=== PATIENT | female | born 1950 | race Caucasian/White ===

== ENCOUNTER → 2018-01-25 14:15 | Outpatient (CLI) | payer OTHER, MEDICARE, SELFPAY | PROVIDERS: PCP Surgery Vascular Surgery; Visit Provider Student in an Organized Health Care Education/Training Program | DX: M20.41 Other hammer toe(s) (acquired), right foot (principal) | CPT/HCPCS: 20600; 99213; J1030 ==

== ENCOUNTER 2019-01-12 10:52 | Outpatient (CLI) | payer MEDICARE, BC, SELFPAY ==
--- NOTE | 2019-01-12 10:12 | DI.RAD_ITS ---
SYMPTOM/DIAGNOSIS: LEFT 5TH TOE PAIN LEFT FOOT: 01/12 Three views were obtained. On AP view there is question of fracture deformity of the base of the proximal phalanx of the 5th toe. I cannot confirm a fracture on the other views however. Apart from mild degenerative changes. No other significant bony abnormality seen. CONCLUSION: Question nondisplaced fracture base of proximal phalanx of the 5th toe. Please correlate clinically.
== END 2019-01-12 11:12 ==
PROVIDERS: PCP Surgery Vascular Surgery; Referring Provider Surgery Vascular Surgery; Visit Provider Student in an Organized Health Care Education/Training Program
DX: S90.122A Contusion of left lesser toe(s) without damage to nail, initial encounter (principal); M79.675 Pain in left toe(s); I10 Essential (primary) hypertension; W22.8XXA Striking against or struck by other objects, initial encounter
CPT/HCPCS: 99214; 73630

== ENCOUNTER 2019-02-26 13:40 | Outpatient (CLI) | payer MEDICARE, BC, SELFPAY ==
--- NOTE | 2019-02-26 13:26 | DI.RAD_ITS ---
EXAM: XR KNEE LT 3V AP,LAT,SHANDA CLINICAL HISTORY: Left Knee Pain. TECHNIQUE: 2D digital imaging was performed. COMPARISON: LEFT KNEE COMPLETE W SUNRISE from 08/01/2008 FINDINGS: BONES: No acute fracture is present. There is marked narrowing in the medial femoral tibial joint sp monik. There is also marked narrowing of the patellofemoral joint. There are osteophytes at all 3 carlitos nt compartments. There is chondrocalcinosis present within the femoral tibial joint. JOINTS: The knee is normally aligned. There is a small suprapatellar joint effusion. SOFT TISSUE: Normal. IMPRESSION: Advanced degenerative changes of the left knee.
== END 2019-02-26 14:00 ==
PROVIDERS: PCP Surgery Vascular Surgery; Referring Provider Surgery Vascular Surgery; Visit Provider Student in an Organized Health Care Education/Training Program
DX: M25.562 Pain in left knee (principal); M17.12 Unilateral primary osteoarthritis, left knee; Z98.890 Other specified postprocedural states
CPT/HCPCS: 73562; 99214

== ENCOUNTER 2020-06-02 14:33 | Outpatient (CLI) | payer MEDICARE, BC, SELFPAY ==
--- NOTE | 2020-06-02 14:00 | DI.RAD_ITS ---
EXAM: XR STANDING ALIGNMENT CLINICAL HISTORY: preop. TECHNIQUE: 2D digital imaging was performed. COMPARISON: No exams were available for comparison FINDINGS: There is fusion hardware in the lumbar spine. There is a degenerative subarticular cyst in the later al aspect of the right femoral head. However, there is no prominent joint space narrowing in the hip s evident. There are advanced degenerative narrowing changes in the medial compartment of the left k nee and chondrocalcinosis in the lateral compartment. Moderate degenerative changes noted in the opp osite-right knee with less narrowing. Mild degenerative changes in the ankles. Talar dome on the ri ght side exhibits possible degenerative cyst on its lateral aspect. No osseous lesions. IMPRESSION: Advanced osteoarthritic degenerative changes in the left knee. Moderate in the right knee. DATA REPOSITORY: RADIATION DOSE DELIVERED:
--- NOTE | 2020-06-02 14:00 | DI.RAD_ITS ---
EXAM: XR KNEE LT 1V CLINICAL HISTORY: preoperative. TECHNIQUE: 2D digital imaging was performed. COMPARISON: CR XR KNEE LT 3V AP,LAT,SHANDA from 02/26/2019 FINDINGS: Cross-table lateral view of the left knee reveals advanced tricompartmental degenerative changes. Th is view also reveal significant involvement of the patellofemoral compartment. The AP weight-bearing view reveals [id number] apposition of the medial compartment and marginal osteophytes. There is n o narrowing of the lateral compartment but there are degenerative changes including chondrocalcinosis . There is a small joint effusion. No osseous lesions. IMPRESSION: DATA REPOSITORY: RADIATION DOSE DELIVERED:
== END 2020-06-02 14:53 ==
PROVIDERS: PCP Surgery Vascular Surgery; Referring Provider Surgery Vascular Surgery; Visit Provider Student in an Organized Health Care Education/Training Program
DX: M17.12 Unilateral primary osteoarthritis, left knee (principal); R06.2 Wheezing; M25.511 Pain in right shoulder; Z01.818 Encounter for other preprocedural examination
CPT/HCPCS: 20610; 99215; 73560; 77073; J1030

== ENCOUNTER 2020-06-05 00:52 | Outpatient (CLI) | payer MEDICARE, BC, SELFPAY ==
--- NOTE | 2020-06-05 08:45 | DI.RAD_ITS ---
EXAM: XR CHEST 2V PA LATERAL CLINICAL HISTORY: EXPIRATORY WHEEZING ON L SIDE OF CHEST, PREOP,R06.2. TECHNIQUE: 2D digital imaging was performed. COMPARISON: No exams were available for comparison FINDINGS: Heart size is normal. The mediastinum is not widened. Lungs are clear. No infiltrates nor pleural effusions. IMPRESSION: No acute pulmonary findings.Incidentally noted is fusion hardware in the lumbar spine. DATA REPOSITORY: RADIATION DOSE DELIVERED:
== END 2020-06-05 01:12 ==
PROVIDERS: PCP Surgery Vascular Surgery; Visit Provider Student in an Organized Health Care Education/Training Program
DX: R06.02 Shortness of breath (principal); R06.2 Wheezing
CPT/HCPCS: 71046

== ENCOUNTER 2020-06-13 02:12 | Outpatient (CLI) | payer MEDICARE, BC, SELFPAY ==
[2020-06-13 10:37] LABS: HCT 40.3 % (36.0-46.0); HGB 13.4 g/dL (11.2-15.7); MCH 29.3 pg (27.0-33.0); MCHC 33.3 % (32.0-36.0); MCV 88.2 fL (80-95); MPV 9.9 fL (8.0-11.0); Platelet Count 244 10^3/uL (130-400); RBC 4.57 10^6/uL (3.93-5.22); RDW 13.5 % (11.7-14.6); RDW-SD 43.5 fL; WBC 7.29 10^3/uL (4.4-10.8)
[2020-06-13 11:19] LABS: Anion Gap 6.2 mmol/L (3-11); BUN 10 mg/dL (7-18); CO2 29.8 mmol/L (21.0-32.0); CREATININE 0.88 mg/dL (0.55-1.02); Calcium 9.3 mg/dL (8.5-10.1); Chloride 99 mmol/L (98-107); Glucose 91 mg/dL (74-106); Potassium 3.8 mmol/L (3.5-5.1); Sodium 135 mmol/L (136-145)
[2020-06-14 16:38] LABS: COVID-19 RT-PCR Result NEGATIVE (Negative)
== END 2020-06-13 02:32 ==
PROVIDERS: PCP Internal Medicine; Visit Provider Student in an Organized Health Care Education/Training Program
DX: M25.562 Pain in left knee (principal); M17.12 Unilateral primary osteoarthritis, left knee; Z11.52 Encounter for screening for COVID-19; Z01.818 Encounter for other preprocedural examination; Z01.812 Encounter for preprocedural laboratory examination
CPT/HCPCS: 36415; 80048; 85027; U0003

== ENCOUNTER 2020-06-17 07:31 | Day surgery (SDC) | payer MEDICARE, BC, SELFPAY ==
[2020-06-17] VITALS (8 sets, daily range): BP systolic 99–125; BP diastolic 62–90; PULSE 48–65; RESP 12–20; TEMP 36.1–36.7; O2SAT 94–97
--- NOTE | 2020-06-17 08:06 | W.PM.DS.N ---
Documented by User: Enriqueta Maysxon 06/17/20 09:45 DS: Diagnosis Discharge Diagnosis (1) Localized osteoarthritis of left knee: Status: Acute Discharge Plan Disposition Patient Disposition: HOME Condition: Good Discharge Details Reason For Visit: Left knee DJD Attending Provider: Olaf Reyez Primary Care Provider: Anjel Vega Home Meds and New Rx's Prescriptions: New celecoxib [Celebrex] 200 mg capsule 200 mg PO BID Qty: 30 RF: 0 aspirin 81 mg tablet,delayed release (DR/EC) 81 mg PO BID 30 Days Qty: 60 RF: 0 acetaminophen 500 mg tablet 500 mg PO Q6H PRN (Reason: pain) Qty: 60 RF: 2 pantoprazole 40 mg tablet,delayed release (DR/EC) 40 mg PO DAILY 30 Days Qty: 30 RF: 0 docusate sodium [Colace] 100 mg capsule 100 mg PO BID Qty: 30 RF: 0 oxycodone 5 mg tablet 5 mg PO Q4H PRN (Reason: severe post-operative pain) Qty: 18 RF: 0 Continued atorvastatin 20 mg tablet 20 mg PO DAILY RF: 0 amlodipine 2.5 MG tablet 2.5 mg PO DAILY RF: 0 hydrochlorothiazide 12.5 MG tablet 12.5 mg PO DAILY RF: 0 Bupropion HCl 100 MG tablet 150 mg PO DAILY RF: 0 Discontinued aspirin 81 MG tablet,chewable 81 mg PO DAILY RF: 0 Discharge Instructions Additional Instructions: Total Knee Discharge Instructions Activity: The most important activity is to walk. You should try to take short walks a few times a day. It is important that when resting you work on keeping the knee straight. Avoid putting a pillow behind the knee as this will encourage flexion. Work on range of motion exercises as provided by Physical Therapy. - Start outpatient physical therapy within 2 weeks. - You should wear the JORDYN hose on both legs for 2 weeks. Dressing: Keep the surgical dressing in place for at least one week. After the first week it may be removed and replace with light gauze and tape or nothing. It may get wet after 3 days but avoid soaking the dressing. If it gets wet, just lightly pat dry. Medications: - You should take Tylenol and anti-inflammatory Celebrex as your primary pain control medications. If the Celebrex is too expensive or not covered, please call the office for another alternative (Advil/Ibuprofen or Naproxen/Aleve) - You have been prescribed a stronger pain medication Oxycodone for breakthrough pain, take as needed as prescribed. - You have also been prescribed a stomach acid reduction agent Pantoprozole to help reduce stomach acid and reflux. - You will be taking Aspirin 81mg twice a day for DVT prevention unless instructed otherwise. - If you have constipation you should take Colace (which was prescribed) or Miralax (which you may purchase [id number]). It takes most people 3-4 days to have a bowel movement. Follow-up: 2 weeks If you have any acute concerns or questions, please do not hesitate to contact the office at [phone]. You may contact Dr. Reyez with any questions after hours through the hospital at [phone] or on his cell phone at [phone]. Referrals: Olaf Reyez MD [ [facility] STAFF PHYSICIAN] - Equipment/Supplies: Walker Activity:: Elevate Remove Dressings/Wound Care:: Do Not Remove Shower/Bathe:: 72 hours Diet:: As Tolerated Discharge Orders Discharge Orders: Discharge Order (Routine); Ordered 06/17/20 Ordered By: Olaf Reyez DS: Data Vitals/I&O Vitals and I&O: Intake & Output 06/16/20 06/16/20 06/17/20 11:59 23:59 11:59 Weight 69.853 kg [facility] Medical History Depression Hammertoe of right foot (12/21/17) History of DVT of lower extremity left leg Hypertension Metatarsalgia of right foot (12/21/17) Surgical History History of lumbar spinal fusion 2018 Hx of breast lump removal Hx of cholecystectomy Hx of parathyroidectomy Social History Smoking/Tobacco Use Status: Never Smoking risk assessment performed?: Yes Alcohol Intake: never Drug use: Occasionally Substance use type: marijuana Details: edible thc - 11 days ago approx Current gender identity: female Do you feel safe at home: Yes Do you feel safe in your relationship?: Yes Documented by User: Olaf Reyez MD 06/17/20 13:41 Date of service: 06/17/20 Time of Service: 13:40 Discharge Plan Disposition Patient Disposition: HOME Condition: Good Discharge Details Reason For Visit: Left knee DJD Attending Provider: Olaf Reyez Primary Care Provider: Anjel Vega Home Meds and New Rx's Prescriptions: New celecoxib [Celebrex] 200 mg capsule 200 mg PO BID Qty: 30 RF: 0 aspirin 81 mg tablet,delayed release (DR/EC) 81 mg PO BID 30 Days Qty: 60 RF: 0 acetaminophen 500 mg tablet 500 mg PO Q6H PRN (Reason: pain) Qty: 60 RF: 2 pantoprazole 40 mg tablet,delayed release (DR/EC) 40 mg PO DAILY 30 Days Qty: 30 RF: 0 docusate sodium [Colace] 100 mg capsule 100 mg PO BID Qty: 30 RF: 0 oxycodone 5 mg tablet 5 mg PO Q4H PRN (Reason: severe post-operative pain) Qty: 18 RF: 0 Continued atorvastatin 20 mg tablet 20 mg PO DAILY RF: 0 amlodipine 2.5 MG tablet 2.5 mg PO DAILY RF: 0 hydrochlorothiazide 12.5 MG tablet 12.5 mg PO DAILY RF: 0 Bupropion HCl 100 MG tablet 150 mg PO DAILY RF: 0 Discontinued aspirin 81 MG tablet,chewable 81 mg PO DAILY RF: 0 Discharge Instructions Additional Instructions: Total Knee Discharge Instructions Activity: The most important activity is to walk. You should try to take short walks a few times a day. It is important that when resting you work on keeping the knee straight. Avoid putting a pillow behind the knee as this will encourage flexion. Work on range of motion exercises as provided by Physical Therapy. - Start outpatient physical therapy within 2 weeks. - You should wear the JORDYN hose on both legs for 2 weeks. Dressing: Keep the surgical dressing in place for at least one week. After the first week it may be removed and replace with light gauze and tape or nothing. It may get wet after 3 days but avoid soaking the dressing. If it gets wet, just lightly pat dry. Medications: - You should take Tylenol and anti-inflammatory Celebrex as your primary pain control medications. If the Celebrex is too expensive or not covered, please call the office for another alternative (Advil/Ibuprofen or Naproxen/Aleve) - You have been prescribed a stronger pain medication Oxycodone for breakthrough pain, take as needed as prescribed. - You have also been prescribed a stomach acid reduction agent Pantoprozole to help reduce stomach acid and reflux. - You will be taking Aspirin 81mg twice a day for DVT prevention unless instructed otherwise. - If you have constipation you should take Colace (which was prescribed) or Miralax (which you may purchase [id number]). It takes most people 3-4 days to have a bowel movement. Follow-up: 2 weeks If you have any acute concerns or questions, please do not hesitate to contact the office at [phone]. You may contact Dr. Reyez with any questions after hours through the hospital at [phone] or on his cell phone at [phone]. Referrals: Olaf Reyez MD [ [facility] STAFF PHYSICIAN] - Equipment/Supplies: Walker Activity:: Elevate Remove Dressings/Wound Care:: Do Not Remove Shower/Bathe:: 72 hours Diet:: As Tolerated Discharge Orders Discharge Orders: Discharge Order (Routine); Ordered 06/17/20 Ordered By: Olaf Reyez DS: Summary Status at Discharge Functional status at discharge: uses cane/walker Overall status at discharge: patient is progressing back to baseline Mental Status: mental status grossly normal Speech and Movement: speech and movement normal Mood: congruent mood Affect: normal affect Exam Psych Mental Status: mental status grossly normal Speech and Movement: speech and movement normal Mood: congruent mood Affect: normal affect [facility] Medical History Depression Hammertoe of right foot (12/21/17) History of DVT of lower extremity left leg Hypertension Metatarsalgia of right foot (12/21/17) Surgical History History of lumbar spinal fusion 2018 Hx of breast lump removal Hx of cholecystectomy Hx of parathyroidectomy Social History Smoking/Tobacco Use Status: Never Smoking risk assessment performed?: Yes Alcohol Intake: never Drug use: Occasionally Substance use type: marijuana Details: edible thc - 11 days ago approx Current gender identity: female Do you feel safe at home: Yes Do you feel safe in your relationship?: Yes
[2020-06-17] MEDS: Lactated Ringers 1,000 ML 30 ML IV (08:32)
[2020-06-17] MEDS: Celecoxib 200 MG CAP 400 MG PO (08:47)
[2020-06-17] MEDS: Acetaminophen 500 MG TAB 1000 MG PO (08:47)
[2020-06-17] MEDS: Gabapentin 300 MG CAP PO (08:47)
[2020-06-17] MEDS: Bupivacaine 0.25% Pres-Free 30 ML VIAL (09:48)
[2020-06-17] MEDS: ceFAZolin 2 GM/50 ML BAG IVPB (10:35)
[2020-06-17] MEDS: Lactated Ringers 1,000 ML 100 ML IV (11:15)
[2020-06-17] MEDS: Bupivacaine 0.5% Pres-Free 30 ML VIAL (11:17)
[2020-06-17] MEDS: Normal Saline 20 ML VIAL (11:19)
[2020-06-17] MEDS: Ketorolac 30 MG/ML VIAL (11:19)
--- NOTE | 2020-06-17 14:20 | PT.INIE ---
Date of service: 06/17/20 Time of Service: 14:20 PT Notes Visit Reasons: Left knee DJD Physical Therapy Day Surgery Initial Evaluation Date: 06/17/2020 Referring Doctor: FABIANA Stringer PT Orders: PT CONSULT: Status post Ortho surgery Precautions: WBAT on left LE. Patient Profile/Admitting Diagnosis: Tawny is a 69-year-old female with primary unilateral osteoarthritis of the left knee and is status post left total knee arthroplasty on postoperative day 0. PMHX: Medical History (Updated 06/03/20 @ 15:38 by FABIANA Montes) Depression Hammertoe of right foot (12/21/17) Hypertension Metatarsalgia of right foot (12/21/17) Social History/Home Situation: Lives with significant other Terry in a private home with 7 steps to enter with rails on both sides. Independent with all aspects of ADLs prior to surgery without the need for an assistive ambulatory device nor adaptive equipment. Equipment Owned/DME: [facility] Subjective: Agreeable to PT consult. Is happy to see how much movement she is able to do now without pain. Denies headache, chest pain, and lightheadedness throughout PT session. Objective: General Observation: Seen walking with the Nurse Daina from bathroom to bedside chair using front wheeled walker as patient needed to void urine. Nurse Daina present throughout PT session. Mental Status: Alert and oriented x4 Pain: None reported ROM: Right Upper Extremity: Shoulder Flexion WFL. Shoulder abduction WFL. Elbow flexion WFL. Wrist flexion WFL. Functional opening and closing of hand WFL. Left Upper Extremity: Shoulder Flexion WFL. Shoulder abduction WFL. Elbow flexion WFL. Wrist flexion WFL. Functional opening and closing of hand WFL. Right Lower Extremity: Hip flexion WFL. Hip abduction WFL. Knee flexion WFL. Ankle dorsiflexion WFL. Ankle plantarflexion WFL. Left Lower Extremity: Hip flexion WFL. Hip abduction WFL. Knee flexion 0 to 110 degrees. Knee extension 110 degrees to 0 degrees ankle dorsiflexion WFL. Ankle plantarflexion WFL. Strength: Right Upper Extremity: Shoulder flexors 5/5. Shoulder abductors 5/5. Elbow flexors 5/5. Elbow extensors 5/5. Marketing Information Coordinator strong. Left Upper Extremity: Shoulder flexors 5/5. Shoulder abductors 5/5. Elbow flexors 5/5. Elbow extensors 5/5. Marketing Information Coordinator strong. Right Lower Extremity: Hip flexors 5/5. Hip abductors 5/5. Knee flexors 5/5. Knee extensors 5/5. Ankle dorsiflexors 5/5. Ankle plantarflexors 5/5. Left Lower Extremity: Hip flexors 5/5. Hip abductors 5/5. Knee flexors 4/5. Knee extensors 4/5. Ankle dorsiflexors 5/5. Ankle plantarflexors 5/5. Sensation: Intact as to pain and light pressure in bilateral lower extremities. Bed Mobility/Transfers: Rolling independent Supine to sit independent Sit to supine independent Sit to stand standby assist Stand to sit standby assist Bed to chair standby assist Chair to bed standby assist Gait: Guided patient through level surface ambulation of 200 feet using front wheeled walker with step-to gait pattern requiring only standby assist. Stairs: Instructed patient with safe and correct technique with managing 5 x 6 inch steps while holding onto 1 rail with 1 hand and with hand-held assist of PT with the other hand, contact-guard assist of PT and standby assist of Nurse Daina and Nurse Barnes for safety. Balance: Static Sitting: Normal Dynamic Sitting: Normal Static Standing: Fair Dynamic Standing: Fair Special Tests: Mobility Limitations Standardized Measure [facility] 6 clicks Basic Mobility Inpatient Short Form: Raw Score: 22 CMS Score: 21% deficit Informed Consent/Education: Patient instructed in purpose of PT consult. Packet containing TKA exercise protocol has been given to patient. Education and training on initial set of exercises that can be done at home have been completed with patient. Assessment: Tawny demonstrates the need for a front wheeled walker for all mobility ADL performance in order to maximize independence and reduce fall risk at home. She has good understanding of her exercises and will have the support of her significant other Terry as she recovers. Patient presents with clinical signs and symptoms consistent with current/admitting diagnoses that have resulted to mobility limitations, gait instability, generalized weakness, and impairment of motor control as demonstrated by the following impairment level findings: 1. Decreased strength to left knee major muscle groups 2. Impaired standing balance 3. Limitation of joint range of motion in left knee Impairments are contributing to the following functional limitations: 1. Inability to safely ambulate without assistive device 2. Increase completion time for mobility ADL performance 3. Increased fall risk Patient is assessed as a [id number] moderate complexity based on the following: History: 69-year-old female with impairment level findings, functional limitations, and past medical history as indicated above Examination: Demonstrable impairment in strength, balance, and mobility level with underlying impairments and functional limitations as documented above Presentation: Evolving Decision Makin moderate complexity Goals: N/A. PT evaluation and 1-2 treatment sessions only for functional mobility training using recommended AD and for HEP instruction. Plan of Care/Treatment Plan: N/A. PT evaluation and 1-2 treatment session only for functional mobility training using recommended AD and for HEP instruction. DISCHARGE RECOMMENDATIONS: Home when medically cleared by orthopedic surgeon. Outpatient physical therapy services in order to facilitate safe return to independent community ambulation without assistive device. TREATMENT CODE/TIME: 16014 x 25 minutes, 10272 x 10 minutes, 28248 x 15 minutes beginning at 14:20 PM. Thank you for the opportunity to participate in the care of this patient. Juliana Willett PT, DPT, CLT [facility] [place], [place]
--- NOTE | 2020-06-18 21:13 | W.PM.OP ---
Date of service: 06/17/20 Time of Service: 12:13 Operative Note Operative Note DATE OF PROCEDURE: 06/17/20 PRE-OP DIAGNOSIS: Left Knee Osteoarthritis POST-OP DIAGNOSIS: same PROCEDURE: Left Total Knee Replacement SURGEON: Olaf Reyez PROCESS CONTROL ENGINEER: Enriqueta Noriega ANESTHESIA: regional and spinal PATHOLOGY: none sent TOURNIQUET TIME: 0 COMPLICATIONS: None Patient was transported to: PACU Patient's condition: stable Implants: 1. Depuy Attune Cementless Cruciate Retaining Femoral Component, Size 5 2. Depuy Attune Cementless Rotating Platform Tibial Component, Size 4 3. Depuy Attune 5x6mm CR/RP Poly 4. Depuy Attune Patellar Component, Size 35 Indications: I have seen Tawny in clinic for symptoms of knee arthritis, confirmed with radiographic findings. She has exhausted nonoperative methods and was having significant limitations in daily function and desired better function and less pain. I discussed the technical details of a knee replacement. I explained the risks of the procedure to include, but not limited to, bleeding, infection, pain, stiffness, fracture, damage to nerves and vessels, damage to muscles and tendons, loosening, need for repeat procedure, blood clot and cardiopulmonary demise. Despite these risks, Tawny elected to proceed. Findings: There was significant signs of arthritis throughout the knee. Procedure Description: Tawny was greeted in the preoperative holding area where the correct side was identified and marked. The consent was reviewed with the patient and signed. The history and physical was updated. All questions were answered. Preoperative medications were administered: Acetaminophen 1000mg, Celebrex 400mg, and Gabapentin 300mg. An adductor canal block was then administered by the anesthesia team in the PACU. Tawny was taken back to the operating room. A spinal anesthestic was then administered. The patient was placed into the supine position on the operating room table. A nonsterile tourniquet was placed high onto the leg but only used for cementing. Posts were placed for positioning during the procedure. All bony prominences were well padded. Prophylactic antibiotics in the form of Cefazolin were administered. 1g of Tranxemic Acid was given intravenously within 30 minutes of incision. The left leg was then prepped with Chloraprep and draped in a standard fashion with impervious stockinette. A second prep with Chloraprep was performed prior to application of Iodine impregnated skin protection. A timeout to confirm correct identity, side and site, procedure, allergies, anesthesia, and medical concerns was performed. With the knee in some flexion, a midline incision was made overlying the knee. Full thickness skin flaps were raised once the extensor mechanism was encountered. These were raised medially and laterally. Any bleeding was controlled with electrocautery. Once the extensor mechanism was fully exposed, a medial parapatellar arthrotomy was performed in a flexed position. All bleeding from the arthrotomy and the geniculate arteries was coagulated. A medial subperiosteal peel was performed with electrocautery to the midcoronal plane. The fat pad was removed while keeping the patellar tendon protected. The anterior distal femur synovium was removed for later visualization. The ACL and PCL were resected and the anterior horn of the lateral meniscus was transected. The knee was then flexed with the patella everted. Large osteophytes from the tibia were removed. Large osteophytes from the femur were removed. Using a step drill, and based on preoperative templating, the femoral canal was entered. This was done with a step drill without any difficulty. The intramedullary distal femoral cut guide was inserted, set to a 5 degree valgus cut and 9mm cut thickness. The distal femoral cut guide was then held in position and pinned. With the soft tissues protected, the distal cut was performed. This was passed over a few times to ensure a planar cut. I then turned attention to the tibia. The extramedullary guide was placed onto the leg. The distal aspect was slid medial to adjust for position of center of ankle and stay in line with shaft of the tibia. Approximately 3-5 degrees of posterior slope was kept in the proximal cutting guide. The center of the guide was aligned with the PCL. The stylus was used to assess cut thickness. The medial side, most involved side, was set for a 3mm cut. This was then held in position and pinned into place with 2 additional pins and a cross pin for stability. The medial and lateral collateral ligaments were protected and the cut was performed. With this completed, it was assessed and noted to be of appropriate dimensions. The guide was removed. A spacer block was inserted and the knee was brought into extension. The 6mm spacer block provided full extension, without hyperextension and with stability of both the medial and lateral collateral ligaments was assessed. The pins from the femur and the tibia were then removed. The distal femur was then sized. The anterior stylus was placed onto the lateral ridge of the anterior femur. This indicated a size 5 femur. The external rotation of the guide was adjusted to 3 degrees to match the epicondylar axis, perpendicular to Mingo?s line. The 4-in-1 cutting guide was the placed. The posterior medial femur cut was evaluated and appeared of good thickness. The spacer block was inserted underneath the cutting guide and stability was confirmed in 90 degrees of flexion. An augusto wing was used to confirm appropriate position of the anterior cut to avoid notching. This cutting guide was ensured to be flush on the cut surface and then pinned into place with headed pins. While protecting the soft tissues, quad tendon, and collateral ligaments, the anterior and posterior cuts were performed with a saw. The central two pins were removed and the posterior and anterior chamfers were cut next. The notch-cutting guide was placed. This was pinned to lateralize the femoral component as much as possible while keeping it flush on the cut surface. This was then pinned into position. A reciprocating saw was used to make the notch cut. A rasp smoothed the cut surfaces. The medial and lateral menisci were removed. A trial femoral component was then inserted, impacted down to the cut surfaces, and the lug holes were drilled. A provisional trial tibial component was placed and the knee was brought through range of motion. There was noted to be excellent extension and flexion. There was no significant instability. The patella was tracking without thumbs. A size 6mm polyethylene component provided the best range of motion and stability with less than 2mm gapping with medial and lateral stress and full extension without significant hyperextension. The tibial cut surface was fully exposed. The tibia was then sized as a 4. The tibia had been previously marked during trialing to correspond to the center of the tibial component to help with rotation. The trial was aligned to this jayce, approximately rotated to the medial 1/3rd of the tibial tubercle. The trial was pinned into place. The tibia was prepared with a reamer and a keel punch and lug holes. The knee was then brought into extension and the patella was measured as 25mm. Using the patellar clamp and cut guide, this was resected to a flat surface with at least 13mm of thickness remaining. The size 35 patella fit the best. This was oriented and then clamped into position. The lugs were drilled. The trial components were removed. The final components were opened on the back table. The periosteal and capsular tissues, especially posteriorly, around the knee were then systematically injected with a periarticular cocktail consisting of 50cc 0.25% Marcaine, 30mg Ketorolac, 20cc of Exparal and 50cc of injectable saline. The knee was thoroughly irrigated with a pulse lavage and dried. Irrisept was also used to irrigate the tissues. On the back table, with the implants opened, the cement was mixed. One batche of high viscosity cement were prepared with vacuum assistance. After the cement was ready a small amount was placed on the cut surface of the patella and the patellar button was clamped into position and held. During this process attention was turned to the gutters of the knee and for all interfaces for any excess cement. While the cement was hardening, the cementless knee components were placed. Starting with the tibial component, the tibia was subluxed anteriorly and the lug holes of the component were lined up. The tibia was then impacted with an impactor and mallet until the tibial component was in contact with the tibia. The final polyethylene component was inserted. Then, the femoral component was inserted. The lug holes were aligned and the component was impacted into position. The knee was irrigated with Irrisept chlorhexadine solution. This was allowed to sit in the knee for 3 minutes. After the cement had finally cured, approximately 15min, the clamp was removed from the patella and the knee was taken through range of motion. The patella was tracking with a no-thumbs technique. The capsule was then reapproximated with a No. 1 Vicryl at multiple locations. The capsule was finally closed with a No. 2 Stratafix, barbed suture. The tourniquet was then released and the arthrotomy appeared watertight without significant bleeding. The second dosing of 1g TXA was started. Deep tissues were then reapproximated with 0 Vicryl and 2-0 Vicryl. The skin was closed with a running 3-0 Monocryl in a subcuticular fashion. This was reinforced with skin glue. A Mepilex silver dressing was applied along with a [id number] MILENA wrap. A CryoCuff was applied. Tawny was transferred to the hospital bed without difficulty an suffering no apparent complication. Tawny has a good prognosis. Physical therapy will start today and without restrictions, weight-bearing as tolerated. Aspirin 81mg BID will be used for DVT prophylaxis.
== END 2020-06-17 16:15 | disposition home or self-care (01) ==
PROVIDERS: PCP Internal Medicine; Visit Provider Student in an Organized Health Care Education/Training Program
PROC: (CPT 27447; principal; 2020-06-17 10:15)
DX: M17.12 Unilateral primary osteoarthritis, left knee (principal); M25.562 Pain in left knee; Z96.652 Presence of left artificial knee joint; I10 Essential (primary) hypertension; K21.9 Gastro-esophageal reflux disease without esophagitis
CPT/HCPCS: 27447; C1776; 76942; 97110; 97162; 97530; NC; J0690; J1100; J1885; J2001; J2250; J2405

== ENCOUNTER 2020-06-30 15:21 | Outpatient (CLI) | payer MEDICARE, BC, SELFPAY ==
--- NOTE | 2020-06-30 14:15 | DI.RAD_ITS ---
EXAM: XR STANDING ALIGNMENT and XR knee LT 1 V CLINICAL HISTORY: post op. TECHNIQUE: 2D digital imaging was performed. COMPARISON: CR XR STANDING ALIGNMENT from 06/02/2020 CR XR KNEE LT 1V from 06/02/2020 CR XR KNEE LT 1V from 06/30/2020 FINDINGS: The hips are well maintained. There is a left convex scoliosis of the lumbar spine. Posterior spina l surgery is seen at the lumbosacral junction. Since the prior examination, there has been interval placement of a left total knee replacement. The orthopedic hardware appears in good position. There is soft tissue swelling about the knee. There does appear to be a small joint effusion. Degenerati ve changes are seen in the right knee characterized by joint space narrowing and periarticular spurri ng. The findings are most marked in the medial femoral tibial joint. The ankles are well maintained . No significant leg length discrepancy is noted. IMPRESSION: 1. Since the prior examination the patient has undergone a left total knee replacement. 2. Osteoarthritis of the right knee. DATA REPOSITORY: RADIATION DOSE DELIVERED:
== END 2020-06-30 15:41 ==
PROVIDERS: PCP Internal Medicine; Referring Provider Internal Medicine; Visit Provider Physician Assistant
DX: Z96.652 Presence of left artificial knee joint (principal); M17.11 Unilateral primary osteoarthritis, right knee; Z47.1 Aftercare following joint replacement surgery
CPT/HCPCS: 73560; 77073

== ENCOUNTER → 2020-08-11 13:20 | Outpatient (BNVA) | payer MEDICARE, BC, SELFPAY | PROVIDERS: PCP Internal Medicine; Visit Provider Student in an Organized Health Care Education/Training Program | DX: Z47.1 Aftercare following joint replacement surgery (principal); Z96.652 Presence of left artificial knee joint ==

== ENCOUNTER → 2020-09-08 10:42 | Outpatient (BNVA) | payer MEDICARE, BC, SELFPAY | PROVIDERS: PCP Internal Medicine; Referring Provider Internal Medicine; Visit Provider Student in an Organized Health Care Education/Training Program | DX: Z47.1 Aftercare following joint replacement surgery (principal); Z96.652 Presence of left artificial knee joint ==

== ENCOUNTER → 2021-01-19 12:59 | Outpatient (BNVA) | payer MEDICARE, BC, SELFPAY | PROVIDERS: PCP Internal Medicine; Referring Provider Internal Medicine; Visit Provider Internal Medicine Cardiovascular Disease | DX: I48.0 Paroxysmal atrial fibrillation (principal); I10 Essential (primary) hypertension | CPT/HCPCS: 99215 ==

== ENCOUNTER 2021-01-26 08:43 | Outpatient (CLI) | payer MEDICARE, BC, SELFPAY ==
--- NOTE | 2021-01-26 12:58 | DI.US_ITS ---
APPROVED REPORT EXAM: Comprehensive 2D, Doppler, and color-flow Echocardiogram Patient Location: Out-Patient Vp Public Relations: Kenzie Ames RDCS (AE) Indications: Palpitations, HTN Other Information Study Quality: Good Conclusion Left Ventricle : The left ventricle is normal size. The left ventricular ejection fraction is within the normal range. There is normal left ventricular wall thickness. There is normal LV segmental wall motion. The left ventricular diastolic function is normal. LVEF is 58%. Right Ventricle : The right ventricle is normal size. The right ventricular systolic function is norm al. The RVSP is 23.5 mmHg. Atria : The left atrium size is normal. The right atrium size is normal. Mitral Valve : Mild mitral annular calcification. Mild mitral regurgitation. No evidence of mitral va lve stenosis. Great Vessels : The aortic root is normal in size. The ascending aorta is normal in size. Aortic arch is normal in caliber. IVC is normal in size and collapses >50% with inspiration. Please see remainder of study for further details. Wall motion Left Ventricle The left ventricle is normal size. The left ventricular ejection fraction is within the normal range. There is normal left ventricular wall thickness. There is normal LV segmental wall motion. The left ventricular diastolic function is normal. There is no ventricular septal defect visualized. LVEF is 5 8%. Right Ventricle The right ventricle is normal size. The right ventricular systolic function is normal. The RVSP is 23 .5 mmHg. Atria The left atrium size is normal. The right atrium size is normal. The interatrial septum is intact wit h no evidence for an atrial septal defect. Aortic Valve The aortic valve is normal in structure. Aortic valve is trileaflet. There is no aortic valvular sten osis. Trace to mild aortic regurgitation. Mitral Valve Mild mitral annular calcification. No evidence of mitral valve stenosis. Mild mitral regurgitation. Tricuspid Valve The tricuspid valve is normal in structure. There is no tricuspid valve stenosis. Trace to mild tricu spid regurgitation. Pulmonic Valve The pulmonary valve is normal in structure. There is no pulmonic valvular stenosis. Trace pulmonic re gurgitation. Great Vessels The aortic root is normal in size. The ascending aorta is normal in size. Aortic arch is normal in ca liber. IVC is normal in size and collapses >50% with inspiration. Pericardium There is no pericardial effusion. 2D Dimensions IVSD d PLAX 1.00 cm F: 0.6-1.0 LV Vol A2C d MOD 82.1 mL LVPW d PLAX 1.01 cm F: 0.6 - 1.0 LV Vol A4C d MOD 95.6 mL LVID d PLAX 4.39 cm F: 3.8 - 5.2 LA vol/ BSA A4C s A-L 31.9 mL/m2 LVDs 2.95 cm F: 2.2 - 3.5 LA Area A4C s MOD 17.89 cm2 Ao Root d 2.72 cm F: 2.7 - 3.3 LV EF A4C MOD 58.6 % RA Area A4C 15.23 cm2 LV EF A2C MOD 57.3 % RA Vol/ BSA A4C s A-L 24.8 mL/m2 LV EF Biplane MOD 57.3 % Ao Asc Diam d 3.01 cm F: 2.3 - 3.1 SV 51.03 mL LV EF Teichholz 61.6 % SV Index 32.20 mL/m2 LVEF (Vazquez's) 57.31 % F: 54 - 74 LV Volume 72.62 mL F: 46 - 106 LV Volume Index 45.96 mL/m2 F: 29 - 61 LV Vol Biplane MOD 89.0 mL FS 32.85 % M-Mode TAPSE 2.65 cm (M/F) >1.7 LV Diastology MV E' medial 0.070 (>0.07 m/s) E/A Ratio 1.6 LV E/e MED 12.15 (<14) MV E Vmax 0.86 (0.4-1.3 m/s) MV E' lateral 0.128 (>0.1 m/s) MV A Vmax 0.55 (0.4-1.3 m/s) LV E/e LAT 6.65 (<14) MV E/A Ratio 1.44 MV E/E' medial 12.15 MV E/E' lateral 6.68 Aortic Valve LVOT Area 3.13 cm2 AoV Area Vmax 2.56 cm2 LVOT Vmax 1.45 m/s AoV Area/ BSA (Vmax) 1.62 cm2/m2 LVOT Mean Nestor. 0.81 m/s JOSE Mean Nestor. 2.17 cm2 LVOT Peak Grad 8.5 mmHg JOSE Mean Nestor. Index 1.37 cm2/m2 LVOT Mean Grad 3.3 mmHg AR DT 3583 msec LVOT VTI 0.287 m AR PHT 1039 msec LVOT Diam s 1.95 cm AoV Vmax 1.78 m/s Velocity Ratio 0.81 AoV Mean Nestor. 1.16 m/s AoV Peak Grad 12.6 mmHg LVOT SV 89.69 mL AoV Mean Grad 6.3 mmHg AoV VTI 0.372 m AoV Area VTI 2.41 cm2 AoV Area/ BSA (VTI) 1.52 cm/m2 Mitral Valve MV DT 199 (160-240 msec) MR Vmax 5.65 m/s MV PHT 58 msec MR VTI 2.202 m MV Area PHT 3.81 cm2 MR Peak Grad 127.5 mmHg MV VTI 0.455 m MR Mean Grad 91.2 mmHg MV VTI Annulus 0.473 m MR PISA Radius 0.28 cm MV Area VTI 2.05 (4.0-6.0 cm2) MR EROA 0.03 cm2 MR Aliasing Velocity 0.35 m/s MR PISA 0.49 cm2 Pulmonary Valve PV Vmax 0.94 (0.5-1.5 m/s) RVOT Peak Gr. 1.28 mmHg PV Peak Grad 3.6 mmHg RVOT Mean Gr. 0.75 mmHg PV Mean Grad 1.9 mmHg RVOT VTI 0.149 m PV VTI 0.175 m RVOT Vmax 0.57 m/s Tricuspid Valve TR Peak Grad 20.4 mmHg TR Vmax 2.26 m/s RA Pressure 3.00 mmHg RVSP (TR) 23.5 mmHg
== END 2021-01-26 09:03 ==
PROVIDERS: PCP Internal Medicine; Visit Provider Internal Medicine Cardiovascular Disease
DX: I10 Essential (primary) hypertension (principal); R00.2 Palpitations; I34.0 Nonrheumatic mitral (valve) insufficiency
CPT/HCPCS: 93306

== ENCOUNTER 2021-01-30 06:11 | Emergency (ER) | payer MEDICARE, BC, SELFPAY ==
[2021-01-30] VITALS (44 sets, daily range): BP systolic 82–154; BP diastolic 35–100; PULSE 40–120; RESP 12–31; TEMP 36.6; O2SAT 94–100
--- NOTE | 2021-01-30 06:00 | RT.EKG_ITS ---
APPROVED REPORT Exam: Resting ECG Reason for Exam: chest pain Patient Location: E HR:56 bpm ECG Measurements Heart Rate 56 AXIS MD 179 P 28 QRSd 100 QRS 8 QT 421 T 22 QTc 377 Conclusion Sinus bradycardia...rate< 60 Multiple ventricular premature complexes...V complexes w/ short R-R intervls I have reviewed and interpreted ECG and agree with software generated interpretation. No STEMI.
--- NOTE | 2021-01-30 06:12 | ED.GENADUL_ITS ---
Discharge Plan Disposition Patient Disposition: HOME Condition: Stable Discharge Details Clinical Impression: Heart palpitations, Paroxysmal atrial fibrillation Primary Care Provider: Anjel Vega ED Provider: Héctor Tierney Home Meds and New Rx's Prescriptions: Continued Eliquis 5 mg tablet 5 mg PO BID Qty: 60 RF: 8 metoprolol succinate 25 mg tablet extended release 24 hr 25 mg PO DAILY Qty: 30 RF: 8 hydrochlorothiazide 12.5 MG tablet 12.5 mg PO DAILY RF: 0 zolpidem 5 mg tablet 5 mg PO QHS PRNRF: 0 acetaminophen 500 mg tablet 500 mg PO Q6H PRN (Reason: pain) Qty: 60 RF: 2 docusate sodium [Colace] 100 mg capsule 100 mg PO BID PRNRF: 0 Discharge Instructions Instructions: A-fib (Atrial Fibrillation) (ED) Additional Instructions: your blood work did not show any concerning findings and you were in a normal rhythm while here. follow up with your primary care provider within 1 week if you feel more ill, feel chest discomfort or difficulty breathing return to the emergency department Discharge Data Discharge Date/Time-TO BE ENTERED AT DEPARTURE: 01/30/21 10:25 Medical Decision Making <Evelio Rowe MD - Last Filed: 02/07/21 00:42> Patient likely was in atrial fibrillation again but has converted on her own. Here she is sinus bradycardia at times into the upper 30s on the monitor. Blood pressure is good. She is currently completely asymptomatic. EKG shows no acute ST changes. She did experience left arm symptoms that she describes as numbness but denies pain. However, out of an abundance of caution, will obtain labs and delta troponin. Patient will be monitored while here. 7 AM: Patient's laboratory studies are unremarkable. Electrolytes normal. First troponin negative. Patient remains in sinus. We will plan repeat troponin and EKG and if no changes and remained stable likely discharge home. Patient will be signed out to oncoming physician, Dr. Tierney. Medical Records Medical records reviewed: Yes I reviewed the patient's medical records. Lab Data Lab results reviewed: Yes I reviewed the patient's lab results. ECG Data Attestation: I personally reviewed and interpreted this ECG (s) as follows: Prior ECG tracings: not available for review Interpretation: see EKG <Héctor Tierney MD - Last Filed: 01/30/21 10:18> pt's labs unremarkable and remains in sinus bradycardia rates in the 50's and o therwise stable with no complaints. Will obtain delta troponin and continue on tele pt remains stable, sinus with rates in the 50's and no symptoms. Will d/c and have her f/u with pcp, return precautions given HPI <Evelio Rowe MD - Last Filed: 02/07/21 00:42> General Mode of arrival: ambulatory . Date/Time Provider Initiated Documentation: 01/30/21 06:12 . Limitations to Documentation: no limitations . Information obtained by: patient, RN notes reviewed and old records reviewed . HPI Narrative: Patient presents to ED after waking up with rapid heart rate/palpitations with associated left arm numbness and tingling. Patient has history of atrial fibrillation. She was just seen by Dr. Berry last week. She was started on Eliquis and metoprolol. She had aspirin and previous antihypertensive discontinued. She had had a similar episode to today about a month ago while she was visiting in [place]. She was found to be in atrial fibrillation and then converted with IV diltiazem. She is also had a Zio patch which showed that she was in atrial fibrillation 2% of the time with the longest episode being 3 hours long. Patient reports palpitations resolving just before she got here. At no time did she have chest pain or pressure, lightheadedness, shortness of breath. She takes her metoprolol in the morning. She has not taken this morning as of yet. Related Data Home Medications Medication Instructions Recorded Confirmed hydrochlorothiazide 12.5 mg PO DAILY tab-cap 12/21/17 01/30/21 acetaminophen 500 mg PO Q6H PRN #60 tab 06/17/20 01/30/21 apixaban 5 mg tablet 5 mg PO BID #60 tab 01/19/21 01/30/21 metoprolol succinate 25 mg 25 mg PO DAILY #30 tab 01/19/21 01/30/21 tablet,extended release 24 hr zolpidem 5 mg tablet 5 mg PO QHS PRN 01/20/21 01/30/21 docusate sodium [Colace] 100 mg PO BID PRN 01/30/21 01/30/21 Previous Rx's Medication Instructions Recorded acetaminophen 500 mg PO Q6H PRN #60 tab 06/17/20 apixaban 5 mg tablet 5 mg PO BID #60 tab 01/19/21 metoprolol succinate 25 mg 25 mg PO DAILY #30 tab 01/19/21 tablet,extended release 24 hr Allergies Allergy/AdvReac Type Severity Reaction Status Date / Time lisinopril AdvReac Mild STOMACH Verified 01/19/21 13:22 ISSUES losartan AdvReac Mild Other (See Unverified 01/30/21 06:20 Comment) Review of Systems <Evelio Rowe MD - Last Filed: 02/07/21 00:42> Narrative: As documented in HPI otherwise negative as below. Const: no fever, chills, weakness Resp: no cough, SOB, pleuritic pain CV: no CP, diaphoresis, edema, syncope GI: no abdominal pain, nausea, vomiting, diarrhea Neuro: no headache, focal weakness, confusion PFSH <Evelio Rowe MD - Last Filed: 02/07/21 00:42> Medical History Depression Hammertoe of right foot (12/21/17) History of DVT of lower extremity left leg 2003 Hypertension Metatarsalgia of right foot (12/21/17) Paroxysmal atrial fibrillation Surgical History History of lumbar spinal fusion 2018 Hx of breast lump removal Hx of cholecystectomy Hx of parathyroidectomy Status post total left knee replacement (06/17/20) Social History Smoking/Tobacco Use Status: Never Smoking risk assessment performed?: Yes Alcohol Intake: never Drug use: Occasionally Substance use type: marijuana Details: edible thc - 11 days ago approx Current gender identity: female Do you feel safe at home: Yes Do you feel safe in your relationship?: Yes Exam <Evelio Rowe MD - Last Filed: 02/07/21 00:42> Narrative Exam Narrative: Const: WDWN female in NAD. HEENT: NC/AT. Normal facial exam. Eyes: Normal conjunctiva and sclera. Neck: Supple. Trachea midline. Lungs: Normal respiratory effort. Lungs are clear. Cor: RRR without murmur/gallop. Good radial pulses. GI: Soft. NT/ND. No guarding or rebound. Neuro: A+O x 3. Normal speech, mentation, gait. Cranial nerves II - XII grossly intact. No gross motor or sensory deficit. Ext: No C/C/E. Skin: Warm and dry without rash. Sign Out <Evelio Rowe MD - Last Filed: 02/07/21 00:42> Sign Out Data: Sign Out Comment: Pending repeat EKG and troponin. Last updated by Evelio Rowe MD at 01/30/21 07:13
[2021-01-30 06:38] LABS: Abs Immature Grans 0.01 10^3/uL (0.0-0.06); Absolute Basophil Count 0.03 10^3/uL (0.0-0.2); Absolute Eosinophil Count 0.12 10^3/uL (0.0-0.7); Absolute Lymphocyte Count 1.81 10^3/uL (1.2-3.4); Absolute Monocyte Count 0.49 10^3/uL (0.1-0.8); Absolute Neutrophil Count 2.95 10^3/uL (1.2-6.7); Basophils % 0.6; Eosinophils % 2.2; HCT 40.7 % (36.0-46.0); HGB 13.2 g/dL (11.2-15.7); Immature Grans % 0.2; Lymphocytes % 33.5; MCH 28.4 pg (27.0-33.0); MCHC 32.4 % (32.0-36.0); MCV 87.5 fL (80-95); MPV 10.1 fL (8.0-11.0); Monocytes % 9.1; Neutrophils % 54.4; Nucleated RBC 0 %; Platelet Count 226 10^3/uL (130-400); RBC 4.65 10^6/uL (3.93-5.22); RDW-SD 44.6 fL; WBC 5.41 10^3/uL (4.4-10.8)
[2021-01-30 06:55] LABS: ALT 28 U/L (14-59); AST 18 U/L (15-37); Albumin 3.7 g/dL (3.4-5.0); Alkaline Phosphatase 118 U/L (46-116); BUN 10 mg/dL (7-18); Bilirubin, Total 0.7 mg/dL (0.2-1.0); CREATININE 0.8 mg/dL (0.55-1.02); Calcium 9.1 mg/dL (8.5-10.1); Chloride 104 mmol/L (98-107); Glucose 92 mg/dL (74-106); Potassium 3.5 mmol/L (3.5-5.1); Sodium 140 mmol/L (136-145); Total Protein 7.2 g/dL (6.4-8.2)
[2021-01-30 06:57] LABS: Troponin I < 0.05 ng/mL (<0.06)
[2021-01-30 09:58] LABS: Troponin I < 0.05 ng/mL (<0.06)
== END 2021-01-30 10:25 | disposition home or self-care (01) ==
PROVIDERS: Emergency Medicine; Emergency Provider Emergency Medicine; PCP Internal Medicine
DX: R00.2 Palpitations (principal); I48.0 Paroxysmal atrial fibrillation
CPT/HCPCS: 36415; 80053; 93005; 99283; 83735; 84484; 85025; 93010

== ENCOUNTER → 2021-02-12 10:17 | Outpatient (BNVA) | payer MEDICARE, BC, SELFPAY | PROVIDERS: PCP Internal Medicine; Referring Provider Internal Medicine; Visit Provider Internal Medicine Cardiovascular Disease | DX: I48.0 Paroxysmal atrial fibrillation (principal); I10 Essential (primary) hypertension | CPT/HCPCS: 99211; 99441 ==

== ENCOUNTER → 2021-03-03 09:53 | Outpatient (BNVA) | payer MEDICARE, BC, SELFPAY | PROVIDERS: PCP Internal Medicine; Referring Provider Internal Medicine; Visit Provider Internal Medicine Cardiovascular Disease | DX: I48.0 Paroxysmal atrial fibrillation (principal); I10 Essential (primary) hypertension; Z79.01 Long term (current) use of anticoagulants | CPT/HCPCS: 99213 ==

== ENCOUNTER 2021-04-01 11:28 | Outpatient (CLI) | payer MEDICARE, BC, SELFPAY ==
--- NOTE | 2021-04-01 11:15 | DI.RAD_ITS ---
Exam(s) XR HIP LT COMPLETE AP PELVIS EXAM: XR HIP LT COMPLETE AP PELVIS CLINICAL HISTORY: left hip pain. TECHNIQUE: 2D digital imaging was performed. COMPARISON: No exams were available for comparison FINDINGS: There is fusion hardware in the lumbar spine seen in the peripheral aspect of the field of view. Mul tiple calcifications are noted in the central pelvis which may be in uterine fibroids or possibly rem nant contrast within sigmoid diverticuli. No pelvic fractures. No hip fractures. No obvious hip joint degenerative changes evident. No osseo us lesions. IMPRESSION: DATA REPOSITORY: RADIATION DOSE DELIVERED:
== END 2021-04-01 11:29 | disposition home or self-care (01) ==
LOC: DIORS 11:28
PROVIDERS: PCP Internal Medicine; Referring Provider Internal Medicine; Visit Provider Physician Assistant Surgical
DX: M25.552 Pain in left hip (principal); M70.62 Trochanteric bursitis, left hip; Z96.652 Presence of left artificial knee joint
CPT/HCPCS: 99214; 73502

== ENCOUNTER 2021-04-20 01:34 | Outpatient (CLI) | payer MEDICARE, BC, SELFPAY ==
--- NOTE | 2021-04-20 14:45 | DI.MRI_ITS ---
Exam(s) MR LUMBAR SPINE WO EXAM: MR LUMBAR SPINE WO CLINICAL HISTORY: LUMBAR PAIN M54.50. TECHNIQUE: Multiplanar multisequence MRI of the Lumbar spine was performed. CR Lumbar Spine from 12/02/2017 CR SPINE LUMBAR (2-3VWS) -ROUTN from 03/21/2018 FINDINGS: There is stable levoscoliosis. Hardware is again noted at L4 through S1, noted on plain films.. The hardware is new when compared with the previous MRI. The alignment is unchanged from plain films wi th L4-5 and L5-S1 spondylolisthesis. Conus medullaris appears normal. L1-2: There is asymmetric loss of disc height, endplate osteophytes and disc bulging which appears to have worsened when compared with the previous exam. There is severe right neural foraminal narrowin g. Moderate left neural foraminal narrowing. L 2 3: Asymmetric loss of disc height, endplate osteophytes projecting toward the right. Severe righ t neural foraminal narrowing. Moderate left neural foraminal narrowing. Metallic artifact somewhat obscures the visualization of the neural foramen at from L4-3 4 through L5-S1. The central canal is also distorted on the axial images and not well evaluated. IMPRESSION: Posterior fusion hardware from L3 through S1 appears unchanged in alignment compared with most recent plain films. This creates metallic artifact and image distortion. The central canal and neural for amen are suboptimally evaluated. Severe neural foraminal narrowing is seen more superior levels on t he right side secondary to combination of degenerative changes. No disc herniation. DATA REPOSITORY:
== END 2021-04-20 01:54 ==
PROVIDERS: PCP Internal Medicine; Visit Provider Internal Medicine
DX: M54.59 Other low back pain (principal); M51.36 Other intervertebral disc degeneration, lumbar region; M48.061 Spinal stenosis, lumbar region without neurogenic claudication
CPT/HCPCS: 72148

== ENCOUNTER → 2021-05-21 10:36 | Outpatient (BNVA) | payer MEDICARE, BC, SELFPAY | PROVIDERS: PCP Internal Medicine; Referring Provider Internal Medicine; Visit Provider Student in an Organized Health Care Education/Training Program | DX: M53.3 Sacrococcygeal disorders, not elsewhere classified (principal); Z96.652 Presence of left artificial knee joint | CPT/HCPCS: 99214 ==

== ENCOUNTER → 2021-07-06 09:54 | Outpatient (BNVA) | payer MEDICARE, BC, SELFPAY | PROVIDERS: PCP Internal Medicine; Visit Provider Internal Medicine Cardiovascular Disease | DX: I48.0 Paroxysmal atrial fibrillation (principal); I10 Essential (primary) hypertension | CPT/HCPCS: 99214; 99213 ==

== ENCOUNTER → 2021-10-16 14:38 | Outpatient (BNVA) | payer MEDICARE, BC, SELFPAY | PROVIDERS: PCP Internal Medicine; Referring Provider Internal Medicine; Visit Provider Urology | DX: R31.29 Other microscopic hematuria (principal); R32 Unspecified urinary incontinence | CPT/HCPCS: 81003; 99215 ==

== ENCOUNTER → 2021-10-23 00:31 | Outpatient (CLI) | payer MEDICARE, BC, SELFPAY ==
--- NOTE | 2021-10-23 07:00 | DI.US_ITS ---
Exam(s) US RENAL EXAM: US RENAL CLINICAL HISTORY: r/o stone, microscopic hematuria, R31.9, E21.3 hyperparathyroidism. TECHNIQUE: Ceballos scale, color and spectral Doppler were used. COMPARISON: CR Lumbar Spine from 12/02/2017 CR SPINE LUMBAR (2-3VWS) -ROUTN from 03/21/2018 MR MR LUMBAR SPINE WO from 04/20/2021 FINDINGS: Renal size in cm: Right: 9.3 left: 10.3 Echogenicity: Normal Hydronephrosis: No Cyst or mass: Right kidney hyperechoic circumscribed lesion at the upper pole or met measuring 1.4 cm . Prior MRI shows a fatty signal lesion, consistent with an angiomyolipoma. Nephrolithiasis: 2 echogenic foci in the left kidney without definite shadowing, stone versus artifac t. No echogenic foci seen on the right. Bladder:Normal. Both ureteral jets were visualized. Prevoid vol:86 cc Postvoid vol:7 cc IMPRESSION: Question of 2 nonobstructing stones in the left kidney versus artifacts. 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 DATA REPOSITORY:
== END ==
PROVIDERS: PCP Internal Medicine; Visit Provider Urology
DX: R31.29 Other microscopic hematuria (principal); E21.3 Hyperparathyroidism, unspecified; N20.0 Calculus of kidney; D17.71 Benign lipomatous neoplasm of kidney
CPT/HCPCS: 76770

== ENCOUNTER → 2021-11-05 09:33 | Outpatient (BNVA) | payer MEDICARE, BC, SELFPAY | PROVIDERS: PCP Internal Medicine; Referring Provider Internal Medicine; Visit Provider Urology | DX: R31.29 Other microscopic hematuria (principal) | CPT/HCPCS: 99214 ==

== ENCOUNTER 2021-11-17 00:42 | Outpatient (CLI) | payer MEDICARE, BC, SELFPAY ==
[2021-11-17 10:11] LABS: Source Nasal/Nares
[2021-11-17 14:05] LABS: COVID-19 PCR Negative (Negative)
== END 2021-11-17 00:43 | disposition home or self-care (01) ==
LOC: LBO 00:42
PROVIDERS: PCP Internal Medicine; Visit Provider Urology
DX: Z20.822 Contact with and (suspected) exposure to COVID-19 (principal); Z01.818 Encounter for other preprocedural examination
CPT/HCPCS: 87635; U0005

== ENCOUNTER 2021-11-19 06:14 | Day surgery (SDC) | payer MEDICARE, BC, SELFPAY ==
[2021-11-19 06:15] VITALS: BP 154/81; PULSE 52; RESP 18; TEMP 36.6; O2SAT 98
[2021-11-19] MEDS: Lactated Ringers 1,000 ML 80 ML IV (06:43)
--- NOTE | 2021-11-19 06:47 | HPE_ITS ---
Date of service: 11/19/21 Time of Service: 06:48 Assessment and Plan Assessment and plan (1) Microscopic hematuria: Status: Acute Assessment and plan: We will complete her hematuria work-up with a cystoscopy and bilateral retrograde pyelogram. We will be prepared to resect or biopsy any abnormalities that we identified. History of Present Illness History of Present Illness Chief Complaint: Microscopic hematuria Narrative: This is a 71-year-old woman who has a finding of microscopic hematuria. She had a renal ultrasound which demonstrated a small angiolipoma in the right kidney and possibly two small stones in the left kidney. She presents now for cystoscopy with bilateral retrograde pyelogram to complete her hematuria work- up. She continues with pelvic pressure that is intermittent and seems to be unrelated to activity. She is not seeing any gross hematuria. Review of Systems Narrative: No fevers or chills No vision change or dysphasia No diabetes or thyroid No shortness of breath, cough or hemoptysis No chest pain or palpitations No nausea, vomiting, hepatitis, ulcers, jaundice, diarrhea or constipation No seizures, strokes or peripheral neuropathy No bleeding disorders or anemia No gout PFSH All Active Problems (Updated 11/19/21 @ 06:53 by Angel Luis Valladares MD) Microscopic hematuria (Acute) Hypertension (Chronic) Depression (Chronic) Closed fracture of phalanx of left fifth toe (Acute) Metatarsalgia of right foot (Acute 12/21/17) Hammertoe of right foot (Acute 12/21/17) Left shoulder pain (Acute) Expiratory wheezing on left side of chest (Acute) History of DVT of lower extremity (Acute) left leg 2002 Status post total left knee replacement (Acute 06/17/20) IBS (irritable bowel syndrome) (Chronic) Paroxysmal atrial fibrillation (Acute) Heart palpitations (Acute) Osteoarthritis (Chronic) Anxiety (Chronic) Cervical polyp (Acute) Esophageal reflux (Chronic) Impacted cerumen, right ear (Acute) Abnormal auditory perception of left ear (Acute) Greater trochanteric bursitis of left hip (Acute) SI (sacroiliac) joint dysfunction (Acute) Blood disorder (Acute) Atrial fibrillation (Chronic) Glaucoma (Chronic) Hyperlipidemia (Acute) Medical History (Updated 11/19/21 @ 06:53 by Angel Luis Valladares MD) Breast calcifications Breast cancer pt. states her biopsy came back negative, she did not have breast cancer Colorectal cancer Pt. denies this Gallstones H/O deep venous thrombosis History of meniscal tear Hyperparathyroidism Pneumonia Surgical History History of lumbar spinal fusion 2018 History of right breast biopsy Hx of breast lump removal Hx of cholecystectomy 2017 Hx of parathyroidectomy 2012 Family History Father Heart disease Heart attack Mother , 88 Osteoarthritis Dementia Social History Smoking/Tobacco Use Status: Never Smoking risk assessment performed?: Yes Alcohol Intake: never Household members: significant other Pets and animals: No Current gender identity: female What is your relationship status?: living with partner Panel score (0-1 are the most socially isolated patients): 1 Do you feel safe at home: Yes Do you feel safe in your relationship?: Yes Meds Allergies and Home Medications Allergies Allergy/AdvReac Type Severity Reaction Status Date / Time lisinopril AdvReac Mild STOMACH Verified 11/18/21 10:31 ISSUES losartan AdvReac Mild stomach Verified 11/18/21 10:31 issues Home Medications Medication Instructions Recorded Confirmed Type acetaminophen 500 mg tablet 500 mg PO Q6H PRN pain #60 tabs 06/17/20 11/18/21 Rx zolpidem 5 mg tablet 5 mg PO QHS PRN 01/20/21 11/19/21 History docusate sodium 100 mg capsule 100 mg PO BID PRN 01/30/21 11/18/21 History (Colace) apixaban 5 mg tablet (Eliquis) 5 mg PO BID #60 tabs 02/26/21 11/18/21 Rx amoxicillin 500 mg tablet 2,000 mg PO ONCE #4 tabs 06/10/21 11/18/21 Rx lorazepam 0.5 mg tablet (Ativan) 0.5 mg PO DAILY PRN 09/29/21 11/18/21 History multivitamin 1 tab PO DAILY 09/29/21 11/19/21 History metoprolol succinate 25 mg 12.5 mg PO DAILY 11/18/21 11/19/21 History tablet,extended release 24 hr Exam Const General: cooperative and comfortable Neck Neck: supple Resp Effort & Inspection: normal respiratory effort Auscultation: clear to auscultation bilaterally Cardio Rate: regular rate Rhythm: regular rhythm GI Palpation: soft and no masses Neuro General: patient alert, patient awake and patient oriented x3 Results Last Vital Signs Temp 36.6 C 11/19/21 06:15 Pulse 52 L 11/19/21 06:15 Resp 18 11/19/21 06:15 BP 154/81 H 11/19/21 06:15 Pulse Ox 98 11/19/21 06:15
--- NOTE | 2021-11-19 07:02 | W.ANESPRE ---
General Info Date of Service Date Performed: 11/19/21 Height: 4 ft 11 in Weight: 67.4 kg Body Mass Index (BMI): 29.9 Surgical Procedure: Operation Date: 11/19/21 07:40 Proposed Procedure Side Surgeon p Cystoscopy/Retrograde Bilateral Angel Luis Valladares MD s Possible Transurethral Resection Bladder Tumor Angel Luis Valladares MD Meds Allergies and Home Medications Allergies Allergy/AdvReac Type Severity Reaction Status Date / Time lisinopril AdvReac Mild STOMACH Verified 11/18/21 10:31 ISSUES losartan AdvReac Mild stomach Verified 11/18/21 10:31 issues Home Medication Medication Instructions Recorded acetaminophen 500 mg tablet 500 mg PO Q6H PRN pain #60 tabs 06/17/20 zolpidem 5 mg tablet 5 mg PO QHS PRN 01/20/21 docusate sodium 100 mg capsule 100 mg PO BID PRN 01/30/21 (Colace) apixaban 5 mg tablet (Eliquis) 5 mg PO BID #60 tabs 02/26/21 amoxicillin 500 mg tablet 2,000 mg PO ONCE #4 tabs 06/10/21 lorazepam 0.5 mg tablet (Ativan) 0.5 mg PO DAILY PRN 09/29/21 multivitamin 1 tab PO DAILY 09/29/21 metoprolol succinate 25 mg 12.5 mg PO DAILY 11/18/21 tablet,extended release 24 hr Current Visit Medications: Current Medications Generic Name Dose Route Start Last Admin Trade Name Freq PRN Reason Stop Dose Admin Ringer's Solution 1,000 mls @ 80 mls/hr 11/19/21 06:00 11/19/21 06:43 IV 12/18/21 23:59 80 mls/hr INFUSION MANUEL Administration Cefazolin Sodium/Dextrose 2 gm in 50 mls @ 100 mls/hr 11/19/21 06:00 Ancef Duplex IVPB 11/19/21 16:00 PREOP MANUEL IV Miscellaneous Supplies 1 each 11/19/21 06:00 Iv Access IV 12/18/21 23:59 DIRECTED MANUEL Sodium Chloride 0 ml 11/19/21 06:00 Normal Saline Flush 10 Ml Syr IV 12/18/21 23:59 PRN PRN Sodium Chloride 0 ml 11/19/21 06:00 Normal Saline 10 Ml Vial IJ 12/18/21 23:59 DIRECTED PRN Sterile Water 0 ml 11/19/21 06:00 Water,Injection,Sterile 10 Ml Vial IJ 12/18/21 23:59 DIRECTED PRN PFSH Active Problems Active Problems: Problem Status Onset Code Microscopic hematuria R31.29 Hypertension I10 Depression F32.9 Closed fracture of phalanx of left fifth toe S92.502A Metatarsalgia of right foot 12/21/17 M77.41 Hammertoe of right foot 12/21/17 M20.41 Left shoulder pain M25.512 Expiratory wheezing on left side of chest R06.2 History of DVT of lower extremity Z86.718 Status post total left knee replacement 06/17/20 Z96.652 IBS (irritable bowel syndrome) K58.9 Paroxysmal atrial fibrillation I48.0 Heart palpitations R00.2 Osteoarthritis M19.90 Anxiety F41.9 Cervical polyp N84.1 Esophageal reflux K21.9 Impacted cerumen, right ear H61.21 Abnormal auditory perception of left ear H93.292 Greater trochanteric bursitis of left hip M70.62 SI (sacroiliac) joint dysfunction M53.3 Blood disorder D75.9 Atrial fibrillation I48.91 Glaucoma H40.9 Hyperlipidemia E78.5 Medical History Medical History (Updated 11/19/21 @ 06:53 by Angel Luis Valladares MD) Breast calcifications Breast cancer pt. states her biopsy came back negative, she did not have breast cancer Colorectal cancer Pt. denies this Gallstones H/O deep venous thrombosis History of meniscal tear Hyperparathyroidism Pneumonia Medical History Comments:: Pt. states her daughter had a hard time coming out of anesthesia, but patient has been okay. Surgical History Surgical History History of lumbar spinal fusion 2018 History of right breast biopsy Hx of breast lump removal Hx of cholecystectomy 2017 Hx of parathyroidectomy 2012 Tobacco Smoking/Tobacco Use Status: Never Alcohol Alcohol Intake: never Vital Signs and Lab Results Vital Signs Most Recent Vital Signs in EMR: Most Recent Vital Signs Temp Pulse Resp BP Pulse Ox 36.6 C 52 L 18 154/81 H 98 11/19/21 06:15 11/19/21 06:15 11/19/21 06:15 11/19/21 06:15 11/19/21 06:15 Lab Results Blood Type / Crossmatch: No Data to Display Complete Blood Count: No Data to Display Complete Metabolic Panel: No Data to Display Liver Function Panel: No Data to Display Coagulation Panel: No Data to Display Cardiac Panel: No Data to Display Arterial Blood Gas: No Data to Display Venous Blood Gas: No Data to Display Pancreas Panel: No Data to Display Thyroid Panel: No Data to Display Infectious Disease: Coronavirus (COVID-19)(PCR) Negative (Negative) 11/17/21 09:25 Coronavirus 2019 Source Nasal/Nares 11/17/21 09:25 Blood Cultures: No Data to Display Toxicology Panel: No Data to Display Anesthesia Assessment and Plan Anesthesia History Personal History: No History of Anesthesia Complications Family History: Other Exercise Tolerance Exercise Tolerance: Metabolic Equivalents>4 Pertinent Negatives Pertinent Negatives: No Symptoms of GERD, No Major Cardiovascular Symptoms or Complaints, No Major Pulmonary Symptoms or Complaints and No History of CVA/TIA Cardiac & Pulmonary Exam Cardiac Exam: Normal S1/S2 Heart Sounds Pulmonary Exam: Clear Bilateral Breath Sounds Implantable Cardiac Device Does patient have a Pacemaker or an ICD?: No Airway Exam Known Difficult Airway: No Mallampati Class: 2 Mouth Opening: Normal (> 3cm) Thyromental Distance: Greater than 3 cm Neck Range of Motion: Full ROM Neck Circumference: Normal Teeth Condition: Normal Dentition and Removable Dentures/Plates Upper ASA Classification ASA Score: ASA 3 Emergency Case?: No NPO Status NPO Status: NPO Clears >2 hours, Solids >8 hours Anesthesia Plan Resuscitation Status: Full Code Anesthesia Technique: General Anesthesia Airway Planned: Natural Airway Monitors Used: Standard Monitors
[2021-11-19 07:26] VITALS: BMI 29.9
[2021-11-19] MEDS: ceFAZolin 2 GM/50 ML BAG IVPB (07:39)
[2021-11-19] MEDS: Omnipaque 300 MG/ML 50 ML BTL (07:50)
[2021-11-19] MEDS: Lidocaine 2% Jelly 6 ML SYR (07:51)
--- NOTE | 2021-11-19 08:04 | DI.RAD_ITS ---
Exam(s) XR RETROGRADE IN OR EXAM: XR RETROGRADE IN OR CLINICAL HISTORY: Microscopic hematuria. TECHNIQUE: Fluoroscopy was provided for the referring physician for guidance with performing retrogr shelley procedure. COMPARISON: No exams were available for comparison FINDINGS: Contrast is seen within both collecting systems. No gross evidence of filling defects. Postsurgical changes of the lower lumbar spine. Please see procedure note for details. Fluoro time: 23.9 RADIATION DOSE DELIVERED: shakira Newell= 4.55 mGy
--- NOTE | 2021-11-19 08:05 | W.PM.DSUDISC ---
Discharge Plan Disposition Patient Disposition: HOME Condition: Good Discharge Details Reason For Visit: hematuria Attending Provider: Angel Luis Valladares Primary Care Provider: Anjel Vega Home Meds and New Rx's Prescriptions: New Myrbetriq 25 mg tablet extended release 24 hr 25 mg PO DAILY Qty: 90 0RF No Action zolpidem 5 mg tablet 5 mg PO QHS PRN Eliquis 5 mg tablet 5 mg PO BID Qty: 60 8RF amoxicillin 500 mg tablet 2,000 mg PO ONCE Qty: 4 0RF Rx Instructions: TAKE 4 TABS WITHIN ONE HOUR OF DENTAL PROCEDURE lorazepam [Ativan] 0.5 mg tablet 0.5 mg PO DAILY PRN multivitamin Tablet 1 tab PO DAILY acetaminophen 500 mg tablet 500 mg PO Q6H PRN (Reason: pain) Qty: 60 2RF docusate sodium [Colace] 100 mg capsule 100 mg PO BID PRN metoprolol succinate 25 mg tablet extended release 24 hr 12.5 mg PO DAILY Discharge Instructions Additional Instructions: followup @ 4 to 6 weeks prescription for Myrbetriq sent to pharmacy Activity:: Activity as Tolerated Shower/Bathe:: 24 hours Discharge Orders Discharge Orders: Discharge Order (Routine); Ordered 11/19/21 Ordered By: Angel Luis Valladares DS: Diagnosis Discharge Diagnosis (1) Microscopic hematuria: Status: Acute
[2021-11-19 08:10] VITALS: BP 112/74; PULSE 51; RESP 16; TEMP 36; O2SAT 98
--- NOTE | 2021-11-19 08:12 | W.PM.OP ---
Date of service: 11/19/21 Time of Service: 08:12 Operative Note Operative Note DATE OF PROCEDURE: 11/19/21 PRE-OP DIAGNOSIS: Microscopic hematuria POST-OP DIAGNOSIS: same PROCEDURE: cystoscopy with bilateral retrograde pyelogram SURGEON: Angel Luis Valladares ANESTHESIA TYPE: General:No Airway Refer to Anesthesia Record ESTIMATED BLOOD LOSS: 5 PATHOLOGY: none sent COMPLICATIONS: None Patient was transported to: same day Patient's condition: stable Implants: none Indications: This is a 71-year-old woman who has a finding of microscopic hematuria with 3-5 red blood cells seen per high-powered field. She underwent a renal ultrasound which showed a small right angiomyolipoma. She also had questionable small left renal stones. She presents for cystoscopy with retrograde pyelogram to complete her hematuria work-up. She is also been complaining of pelvic pressure and urinary frequency. Her urine samples and cultures have shown no bacterial infection. Findings: no papillary or nodular bladder lesions Procedure Description: Patient was brought to the operating room on 11/19/2021. She was given preoperative antibiotics. After successful induction of general anesthesia, she was placed in the dorsal lithotomy position. Her genitalia was prepped and draped. 2% Xylocaine jelly was instilled into the urethra to act as a local anesthetic. A 22 Indonesian rigid cystoscope was passed through the urethra into the bladder. The bladder and urethra were inspected using both a 30 and a 70 degree lens. The base of the bladder had distended slightly consistent with a small cystocele. Both ureteral orifices appeared normal with no blood seen coming from either side. The remainder the bladder appeared smooth-walled with no papillary or nodular lesions. The area right at the bladder neck did appear slightly more erythematous than the remainder of the bladder. The right ureteral orifice was cannulated with a 5 Indonesian access catheter and a retrograde film was obtained by injecting Omnipaque through the access catheter under fluoroscopic guidance. No filling defects were seen along the course of the ureter. The right kidney drained with no delay on drainage films. The left ureteral orifice seemed a bit narrower and I was unable to pass the access catheter directly into the orifice. I did pass a Glidewire and then was able to successfully advance the access catheter over the wire. The left-sided retrograde pyelogram again showed no filling defects. There was no delay on the left-sided drainage films. Based on today's examination, I find no significant uropathology. We will attempt to use bladder relaxers for her urinary frequency and pelvic pressure. The bladder was emptied and the scope was removed.
[2021-11-19] MEDS: Phenazopyridine 200 MG TAB PO (08:37)
[2021-11-19 08:41] VITALS: BP 147/92; PULSE 49; RESP 16; TEMP 36; O2SAT 94
--- NOTE | 2021-11-19 09:06 | W.ANESPOSTOP ---
Postoperative Evaluation Date, Time and Location Date Performed: 11/19/21 Time Performed: 08:40 Patient Location: Day Surgery Unit Vital Signs Most Recent Imported Vital Signs: Most Recent Vital Signs Temp Pulse Resp BP Pulse Ox 36 C L 49 L 16 147/92 H 94 11/19/21 08:41 11/19/21 08:41 11/19/21 08:41 11/19/21 08:41 11/19/21 08:41 Pain Score Most Recent Pain Score: Most Recent Pain Score Pain Level 0 11/19/21 08:10 Assessment Mental Status: Awake (Alert & Oriented to Patient Baseline) Airway and Respiratory Function: Patent airway with normal (patient baseline) respiratory exam Cardiovascular Function: Hemodynamically Stable Hydration Status: Adequately Hydrated Nausea & Vomiting: No Nausea or Vomiting Pain: Pt. Denies Any Pain Peripheral Nerve Block: Patient did not receive a nerve block Postoperative Comments:: Patient seen earlier in [facility]. Patient appropriate for discharge. Patient denied questions at bedside.
== END 2021-11-19 09:10 | disposition home or self-care (01) ==
PROVIDERS: PCP Internal Medicine; Visit Provider Urology
PROC: (CPT 74450; principal; 2021-11-19 07:30)
DX: R31.29 Other microscopic hematuria (principal); D17.79 Benign lipomatous neoplasm of other sites; I10 Essential (primary) hypertension; F32.A Depression, unspecified; Z86.718 Personal history of other venous thrombosis and embolism; F41.9 Anxiety disorder, unspecified; E78.5 Hyperlipidemia, unspecified
CPT/HCPCS: 52005; 74420; J0690; J1100; J2405; J2704; Q9967

== ENCOUNTER → 2022-01-18 13:39 | Outpatient (BNVA) | payer MEDICARE, BC, SELFPAY | PROVIDERS: PCP Internal Medicine; Referring Provider Internal Medicine; Visit Provider Student in an Organized Health Care Education/Training Program | DX: M70.61 Trochanteric bursitis, right hip (principal); M70.62 Trochanteric bursitis, left hip | CPT/HCPCS: 20610; J1040 ==

== ENCOUNTER → 2022-06-03 09:36 | Outpatient (BNVA) | payer MEDICARE, BC, SELFPAY | PROVIDERS: PCP Internal Medicine; Referring Provider Internal Medicine; Visit Provider Internal Medicine Cardiovascular Disease | DX: I48.0 Paroxysmal atrial fibrillation (principal); I10 Essential (primary) hypertension; Z79.01 Long term (current) use of anticoagulants | CPT/HCPCS: 99214 ==

== ENCOUNTER → 2022-07-08 09:24 | Outpatient (BNVA) | payer MEDICARE, BC, SELFPAY | PROVIDERS: PCP Internal Medicine; Referring Provider Internal Medicine; Visit Provider Student in an Organized Health Care Education/Training Program | DX: M70.61 Trochanteric bursitis, right hip (principal) | CPT/HCPCS: 20610; J1040 ==

== ENCOUNTER → 2022-07-20 10:32 | Outpatient (BNVA) | payer MEDICARE, BC, SELFPAY | PROVIDERS: PCP Internal Medicine; Referring Provider Internal Medicine; Visit Provider Internal Medicine Cardiovascular Disease | DX: I48.0 Paroxysmal atrial fibrillation (principal); I10 Essential (primary) hypertension | CPT/HCPCS: 99213 ==

== ENCOUNTER 2022-09-21 14:53 | Outpatient (CLI) | payer MEDICARE, BC, SELFPAY ==
--- NOTE | 2022-09-21 14:45 | DI.RAD_ITS ---
Exam(s) XR SHOULDER LT COMPLETE 2+V EXAM: XR SHOULDER LT COMPLETE 2+V CLINICAL HISTORY: Left shoulder pain. TECHNIQUE: 2D digital imaging was performed of the left shoulder. Two images were obtained. AP and axillary views were obtained. COMPARISON: No exams were available for comparison FINDINGS: BONES: No acute fracture is present. No bony destructive lesion is seen. JOINTS: No dislocation present. The glenohumeral and acromioclavicular joints are well maintained. SOFT TISSUE: Normal. IMPRESSION: No acute abnormality. DATA REPOSITORY: RADIATION DOSE DELIVERED:
== END 2022-09-21 14:54 | disposition home or self-care (01) ==
LOC: DIORS 14:53
PROVIDERS: PCP Internal Medicine; Referring Provider Internal Medicine; Visit Provider Student in an Organized Health Care Education/Training Program
DX: M75.52 Bursitis of left shoulder
CPT/HCPCS: 20610; 99213; 73030; J1030

== ENCOUNTER → 2022-11-23 11:03 | Outpatient (BNVA) | payer MEDICARE, BC, SELFPAY | PROVIDERS: PCP Internal Medicine; Referring Provider Internal Medicine; Visit Provider Student in an Organized Health Care Education/Training Program | DX: M75.52 Bursitis of left shoulder (principal) | CPT/HCPCS: 99213 ==

== ENCOUNTER → 2023-01-04 13:24 | Outpatient (BNVA) | payer MEDICARE, BC, SELFPAY | PROVIDERS: PCP Internal Medicine; Referring Provider Internal Medicine; Visit Provider Student in an Organized Health Care Education/Training Program | DX: M19.012 Primary osteoarthritis, left shoulder (principal); M75.52 Bursitis of left shoulder | CPT/HCPCS: 20610; 99213; J1040 ==

== ENCOUNTER → 2023-02-16 01:38 | Outpatient (CLI) | payer MEDICARE, BC, SELFPAY ==
--- NOTE | 2023-02-16 08:30 | DI.MRI_ITS ---
Exam(s) MR UPPER JOINT LT WO EXAM: MR UPPER JOINT LT WO CLINICAL HISTORY: L SHOULDER PAIN,ARTHRITIS LT GLENOHUMERAL JOINT,BURSITIS LT SHOULDER,M75.52. TECHNIQUE: Multiplanar multisequence MRI was performed. COMPARISON: Plain films September 19 FINDINGS: Exam is somewhat limited by motion. BONES: There is no fracture or contusion pattern. JOINTS:The acromioclavicular joint shows mild spurring and small amount of fluid. The glenohumeral j oint degenerative changes. Spurring at the tip of the acromion. TENDONS: Supraspinatus: Full-thickness tear anteriorly with mild retraction. Infraspinatus: Unremarkable. Subscapularis: Apparent severe partial tear with retraction of some fibers. Teres Minor: Unremarkable. Biceps and [place]: Some thickening of upper biceps tendon with edema. Apparent split in the biceps t endon anterior to the humeral head and upper shaft. Surrounding fluid. MUSCLES: Unremarkable. GLENOID LABRUM: Unremarkable on this noncontrast examination. SOFT TISSUES: Unremarkable. OTHER: Subacromial and subdeltoid bursae shows a minimal amount of fluid in the subcoracoid bursa.. There is a small amount of fluid IMPRESSION: Exam limited by motion. Full-thickness tear of the supraspinatus tendon. At least severe partial te ar of the subscapularis tendon. Biceps tendinosis and longitudinal split tear. DATA REPOSITORY:
== END ==
PROVIDERS: PCP Internal Medicine; Visit Provider Student in an Organized Health Care Education/Training Program
DX: S46.012A Strain of muscle(s) and tendon(s) of the rotator cuff of left shoulder, initial encounter; M19.012 Primary osteoarthritis, left shoulder; X58.XXXA Exposure to other specified factors, initial encounter
CPT/HCPCS: 73221

== ENCOUNTER → 2023-02-23 09:15 | Outpatient (BNVA) | payer MEDICARE, BC, SELFPAY | PROVIDERS: PCP Internal Medicine; Referring Provider Internal Medicine; Visit Provider Student in an Organized Health Care Education/Training Program | DX: M19.012 Primary osteoarthritis, left shoulder (principal); M75.102 Unspecified rotator cuff tear or rupture of left shoulder, not specified as traumatic | CPT/HCPCS: 99214 ==

== ENCOUNTER → 2023-08-26 09:56 | Outpatient (BNVA) | payer MEDICARE, BC, SELFPAY | PROVIDERS: PCP Internal Medicine; Visit Provider Internal Medicine Cardiovascular Disease | DX: I48.0 Paroxysmal atrial fibrillation (principal); I10 Essential (primary) hypertension | CPT/HCPCS: 99213 ==

== ENCOUNTER → 2023-09-27 09:57 | Outpatient (BNVA) | payer MEDICARE, BC, SELFPAY | PROVIDERS: PCP Internal Medicine; Referring Provider Internal Medicine | DX: M75.52 Bursitis of left shoulder (principal); M75.102 Unspecified rotator cuff tear or rupture of left shoulder, not specified as traumatic; M19.012 Primary osteoarthritis, left shoulder | CPT/HCPCS: 20610; J1010 ==

== ENCOUNTER → 2023-10-27 14:15 | Outpatient (BNVA) | payer MEDICARE, BC, SELFPAY | PROVIDERS: PCP Internal Medicine; Referring Provider Internal Medicine | DX: M70.61 Trochanteric bursitis, right hip (principal) | CPT/HCPCS: 20610; J1010 ==

== ENCOUNTER → 2024-01-19 09:04 | Outpatient (BNVA) | payer MEDICARE, BC, SELFPAY | PROVIDERS: PCP Internal Medicine; Referring Provider Internal Medicine; Visit Provider Physician Assistant | DX: M70.61 Trochanteric bursitis, right hip (principal); M76.31 Iliotibial band syndrome, right leg; M54.50 Low back pain, unspecified | CPT/HCPCS: 99213 ==

== ENCOUNTER 2024-02-08 15:13 | Outpatient (CLI) | payer MEDICARE, BC, SELFPAY ==
--- NOTE | 2024-02-08 13:00 | DI.RAD_ITS ---
Exam(s) XR HIP RT AP LAT ONLY EXAM: XR HIP RT AP LAT ONLY CLINICAL HISTORY: evaluate right hip. TECHNIQUE: 2D digital imaging was performed. Two views COMPARISON: CR XR HIP LT COMPLETE AP PELVIS from 04/01/2021 FINDINGS: BONES: No acute fracture is present. No bony destructive lesion is seen. JOINTS: No dislocation present. Hip joint space is maintained. There is mild acetabular spurring a nd mild spurring at the margin of the femoral head. Degenerative changes also noted in the right SI joint. SOFT TISSUE: Normal. IMPRESSION: mild degenerative changes of the right hip. DATA REPOSITORY: RADIATION DOSE DELIVERED:
== END 2024-02-08 15:14 | disposition home or self-care (01) ==
LOC: DIORS 15:14
PROVIDERS: PCP Internal Medicine; Visit Provider Student in an Organized Health Care Education/Training Program
DX: M70.61 Trochanteric bursitis, right hip (principal); M76.31 Iliotibial band syndrome, right leg
CPT/HCPCS: 99214; 73502

== ENCOUNTER 2024-03-01 08:51 | Day surgery (SDC) | payer MEDICARE, BC, SELFPAY ==
[2024-03-01] VITALS (31 sets, daily range): BP systolic 104–143; BP diastolic 48–89; PULSE 37–64; RESP 11–20; TEMP 36–36.6; O2SAT 94–99; BMI 31.7
--- NOTE | 2024-03-01 07:10 | W.PM.DSUDISC ---
Date of service: 03/01/24 Time of Service: 13:00 Discharge Plan Disposition Patient Disposition: Home Condition: Stable Discharge Details Attending Provider: Tl Macario Primary Care Provider: Anjel Vega Home Meds and New Rx's Prescriptions: New tramadol 50 mg tablet 50 mg PO Q8H PRN (Reason: severe pain) Qty: 9 0RF naproxen 250 mg tablet 250 mg PO BID PRNQty: 20 0RF Rx Instructions: take with a meal Continued Eliquis 5 mg tablet 5 mg PO BID Qty: 60 8RF acetaminophen 500 mg tablet 500 mg PO Q6H PRN (Reason: pain) Qty: 60 2RF zolpidem [Ambien] 5 mg tablet 5 mg PO QHS metoprolol tartrate 25 mg tablet 25 mg PO DAILY Patient Comments: pt. reports she got this when she was in afib and this was given to slow her rate but is now on Eliquis and has not known to be A fib for a couple years zoltan extract 500 mg capsule PO multivitamin Tablet 1 tab PO DAILY Discharge Instructions Additional Instructions: Surgery: Right hip endoscopy with iliotibial band release, trochanteric bursectomy, and gluteal tendon repair Activity: Protected weightbearing with a walker for 6 weeks. Gentle hip range of motion. No strengthening for 3 months. A physical therapy prescription will be sent electronically to begin in about 3 weeks. Prescriptions: Resume home Eliquis tomorrow Naproxen 250 mg take 1 every 12 hours with a meal as needed for moderate pain (use cautiously with Eliquis) Tramadol 50 mg take 1 every 8 hours as needed for severe pain You may use [id number] Tylenol (acetaminophen) as needed for mild pain. These pain medications may be taken all at once or in different combinations as needed. Also, recommend Colace (docusate) as a stool softener as surgery and pain medicine cause constipation. You may try [id number] diphenhydramine (Benadryl) 25-50 mg nightly as a sleep aid Dressings: Leave dressing in place for 3 days. May then remove and leave open to air or cover incisions with Band-Aids. Leave the sticky Steri-Strips in place until they fall off or remove them after you shower. May shower after 5 days. Follow-up: 10-[address] Macario You may take off the leg compression stockings this evening at home. You may also leave them on a few days longer if you have a history of leg swelling or edema. Let us know right away if you develop any redness, drainage, fevers, chest pain, or trouble breathing. Do not drink alcohol or drive for at least 24 hours after anesthesia. Please call the office during business hours with any questions or concerns. Stand Alone Forms: Anesthesia Discharge Inst., Lalito Brito ([facility]) Discharge Orders Discharge Orders: Discharge Order (Routine); Ordered 03/01/24 Ordered By: Dea Antunez DS: Diagnosis Discharge Diagnosis (1) Trochanteric bursitis, right hip: Status: Acute (2) Iliotibial band syndrome of right side: Status: Acute
--- NOTE | 2024-03-01 07:27 | W.PM.OP ---
Date of service: 03/01/24 Time of Service: 11:00 Operative Note Operative Note DATE OF PROCEDURE: 03/01/24 PRE-OP DIAGNOSIS: Right hip 1. Iliotibial band syndrome 2. Trochanteric bursitis 3. Gluteal tendon tear POST-OP DIAGNOSIS: other 3. Large gluteal tendon tear PROCEDURE: Right hip endoscopic 1. Iiliotibial band release, CPT# 62488 2. Trochanteric bursectomy, CPT# 57698 3. Gluteal tendon repair, CPT# 19915 SURGEON: Tl Macario MEMORANDUM STATEMENT CLERK: Dea Antunez ANESTHESIA TYPE: Local By Surgeon and General LMA/ETT Refer to Anesthesia Record ESTIMATED BLOOD LOSS: 5 COMPLICATIONS: None Patient was transported to: PACU Patient's condition: stable Implants: Arthrex 5.5 mm bio composite SwiveLock x 1 Indications: Please see complete medical record for details. Findings: Degenerative iliotibial band. Abundant inflamed trochanteric bursitis. Large U-shaped chronic gluteal tendon tear. Procedure Description: In the operating room, general anesthesia was induced. The patient was positioned supine on the [facility] operating room table. All bony prominences were well-padded. Preoperative antibiotics were administered. The hip was prepped and draped in the usual sterile fashion. The correct patient, procedure, and side of the procedure were all verified prior to incision. 30 cc of 0.25% bupivacaine containing epinephrine was infiltrated about the subcutaneous tissues for the planned anterior lateral and distal anterolateral portals as well as deeply over the greater trochanter. A knife was used to incise the skin for the anterior lateral and distal anterolateral portals followed by blunt dissection subcutaneously. Under fluoroscopic guidance, a switching stick and arthroscope were inserted localizing the iliotibial band over the greater trochanter. Blunt dissection and the mechanical shaver were used to resect fat and overlying tissue about the center of the iliotibial band and carefully expose the anterior and posterior margins. Once there was adequate exposure of the IT band, the greater trochanter was again localized under fluoroscopic guidance with a spinal needle inserted through the skin down to bone. This central area was marked using the radiofrequency ablator. A Hettinger blade was brought in and used to create a 2 cm longitudinal incision in line with the IT band fibers as well as extending it in a cruciate fashion with 2 cm incisions anteriorly and posteriorly. The radiofrequency ablator was used to achieve hemostasis. The mechanical shaver was then used to debride the IT band released edges exposing the trochanteric bursa. The mechanical shaver was then used to excise the trochanteric bursa taking care to protect musculature about the margins of the greater trochanter as well as neurovascular structures especially posteriorly. There was excellent visualization of the vastus lateralis as well as gluteus medius confirming appropriate bursa excision. The hip was brought through range of motion including internal and external rotation and there was no impinging iliotibial band tissue or remaining pathologic bursa. The viewing and working portals were switched and appropriate IT band release, trochanteric bursa excision, and hemostasis confirmed. Hip range of motion was used to confirm that the gluteal tendons were not attached deeply in any way to the greater trochanter as they did not move with hip internal or external rotation. The tendons were elevated off the central typical area easily of repair exposing a large U-shaped tear from posterior to proximal medius and anterior minimus. There is also proximal lateralis fraying tearing as well. The bone beneath a chronic fibrinous changes and largely devoid of gluteal tendon except for a small area proximally and deeply. Given the large tear and worsening hip pain, decision was made to proceed with repair as the tendon was in close approximation and would hopefully allow improved pain, and possibly improve his function. The self retrieving scorpion suture passer used to place a widely spaced inverted horizontal mattress FiberTape in the central proximal portion of the gluteus medius tendon. The scorpion is used to place an additional suture tape FiberLink posteriorly gluteus medius and anteriorly gluteus minimus. All 4 suture tails were brought out the proximal portal and secured to a central 5.5 mm SwiveLock anchor with appropriate tension on the repair, repaired with the undersized punch due to somewhat poor bone quality. There was good repair strength and stable through motion, but additional tearing more posteriorly and anteriorly. The double loaded sliding repair suture was used to incorporate a simple repair stitch with the scorpion and secured with SMC arthroscopic knots more posteriorly and anteriorly completing the repair. Suction was used to remove fluid from the endoscopic space. The portals were closed using 3-0 Monocryl in a buried fashion. Steri-Strips were applied over the incisions followed by Xeroform, 4 x 4 gauze, an ABD pad, and secured with tape. The patient awoke from anesthesia without complication and was transferred to the recovery room in a stable condition.
[2024-03-01] MEDS: Lactated Ringers 1,000 ML 30 ML IV (10:00)
--- NOTE | 2024-03-01 10:07 | W.ANESPRE ---
General Info Date of Service Date Performed: 03/01/24 Height: 4 ft 11 in Weight: 71.3 kg Body Mass Index (BMI): 31.7 Surgical Procedure: Operation Date: 03/01/24 10:20 Proposed Procedure Side Surgeon p Endoscopic Iliotibial Band Release w/Trochanteric Bursectomy and Possible Gluteal Tendon Repair Right Tl Macario MD Meds Allergies and Home Medications Allergies Allergy/AdvReac Type Severity Reaction Status Date / Time lisinopril AdvReac Mild STOMACH Verified 03/01/24 09:25 ISSUES losartan AdvReac Mild stomach Verified 03/01/24 09:25 issues Home Medication ?Medication ?Instructions ?Recorded acetaminophen 500 mg tablet 500 mg PO Q6H PRN pain #60 tabs 06/17/20 apixaban 5 mg tablet (Eliquis) 5 mg PO BID #60 tabs 02/26/21 zoltan extract 500 mg capsule mg PO 03/01/24 metoprolol tartrate 25 mg tablet 25 mg PO DAILY 03/01/24 multivitamin 1 tab PO DAILY 03/01/24 zolpidem 5 mg tablet (Ambien) 5 mg PO QHS 03/01/24 Current Visit Medications: Current Medications Generic Name Dose Route Start Last Admin Trade Name Freq PRN Reason Stop Dose Admin Ringer's Solution 1,000 mls @ 30 mls/hr 03/01/24 06:00 IV 03/30/24 23:59 INFUSION MANUEL Cefazolin Sodium/Dextrose 2 gm in 50 mls @ 100 mls/hr 03/01/24 06:00 Ancef Duplex IVPB 03/01/24 16:00 PREOP MANUEL Tranexamic Acid/Sodium Chloride 1,000 mg in 100 mls @ 600 mls/hr 03/01/24 06:00 IVPB 03/01/24 16:00 PREOP MANUEL IV Miscellaneous Supplies 1 each 03/01/24 06:00 Iv Access IV 03/30/24 23:59 DIRECTED MANUEL Oxycodone HCl 0 mg 03/01/24 07:10 Oxycodone 5 Mg Tab PO 03/31/24 07:09 Q3H PRN PRN Pain Sodium Chloride 0 ml 03/01/24 06:00 Normal Saline Flush 10 Ml Syr IV 03/30/24 23:59 PRN PRN Sodium Chloride 0 ml 03/01/24 06:00 Normal Saline 10 Ml Vial IJ 03/30/24 23:59 DIRECTED PRN Sterile Water 0 ml 03/01/24 06:00 Water,Injection,Sterile 10 Ml Vial IJ 03/30/24 23:59 DIRECTED PRN PFS Active Problems Active Problems: Problem Status Onset Code Impacted cerumen, bilateral Acute H61.23 Low back pain Acute M54.50 Iliotibial band syndrome of right side Acute M76.31 Ear pain, left Acute H92.02 Left rotator cuff tear Acute M75.102 Arthritis of left glenohumeral joint Acute M19.012 Bursitis of shoulder, left Acute M75.52 Referred otalgia of left ear Acute H92.02 Trochanteric bursitis, right hip Acute M70.61 Microscopic hematuria Acute R31.29 Hypertension Chronic I10 Depression Chronic F32.9 Closed fracture of phalanx of left fifth toe Acute S92.502A Metatarsalgia of right foot Acute 12/21/17 M77.41 Hammertoe of right foot Acute 12/21/17 M20.41 Left shoulder pain Acute M25.512 Expiratory wheezing on left side of chest Acute R06.2 History of DVT of lower extremity Acute Z86.718 Status post total left knee replacement Acute 06/17/20 Z96.652 IBS (irritable bowel syndrome) Chronic K58.9 Paroxysmal atrial fibrillation Acute I48.0 Heart palpitations Acute R00.2 Osteoarthritis Chronic M19.90 Anxiety Chronic F41.9 Cervical polyp Acute N84.1 Esophageal reflux Chronic K21.9 Impacted cerumen, right ear Acute H61.21 Abnormal auditory perception of left ear Acute H93.292 Greater trochanteric bursitis of left hip Acute M70.62 SI (sacroiliac) joint dysfunction Acute M53.3 Blood disorder Acute D75.9 Atrial fibrillation Chronic I48.91 Glaucoma Chronic H40.9 Hyperlipidemia Acute E78.5 Medical History Medical History Breast cancer pt. states her biopsy came back negative, she did not have breast cancer Colorectal cancer Pt. denies this H/O deep venous thrombosis Breast calcifications Gallstones Hyperparathyroidism History of meniscal tear Pneumonia Medical History Comments:: Pt. states her daughter had a hard time coming out of anesthesia, but patient has been okay. Pt. reports feeling N/V Surgical History Surgical History History of arthroplasty of left knee History of right breast biopsy Hx of breast lump removal Hx of parathyroidectomy 2012 Hx of cholecystectomy 2017 History of lumbar spinal fusion 2018 Tobacco Smoking/Tobacco Use Status: Never Alcohol Alcohol Intake: current Alcohol intake frequency: holidays/special occasions only Alcohol type: wine Substance Use Substance use: Never Substance use type: does not use Details: alcohol: years Vital Signs and Lab Results Vital Signs Most Recent Vital Signs in EMR: Most Recent Vital Signs Temp Pulse Resp BP Pulse Ox 36.0 C L 56 L 18 143/88 H 96 03/01/24 09:36 03/01/24 09:36 03/01/24 09:36 03/01/24 09:36 03/01/24 09:36 Lab Results Blood Type / Crossmatch: No Data to Display Complete Blood Count: No Data to Display Complete Metabolic Panel: No Data to Display Liver Function Panel: No Data to Display Coagulation Panel: No Data to Display Cardiac Panel: No Data to Display Arterial Blood Gas: No Data to Display Venous Blood Gas: No Data to Display Pancreas Panel: No Data to Display Thyroid Panel: No Data to Display Infectious Disease: No Data to Display Blood Cultures: No Data to Display Toxicology Panel: No Data to Display Anesthesia Assessment and Plan Anesthesia History Personal History: No History of Anesthesia Complications Family History: No Family History of Anesthesia Complications Exercise Tolerance Exercise Tolerance: Metabolic Equivalents>4 Pertinent Negatives Pertinent Negatives: No Symptoms of GERD Cardiac & Pulmonary Exam Cardiac Exam: Normal S1/S2 Heart Sounds Pulmonary Exam: Clear Bilateral Breath Sounds Implantable Cardiac Device Does patient have a Pacemaker or an ICD?: No Airway Exam Known Difficult Airway: No Mallampati Class: 2 Mouth Opening: Normal (> 3cm) Thyromental Distance: Greater than 3 cm Neck Range of Motion: Full ROM Neck Circumference: Normal Teeth Condition: Normal Dentition and Removable Dentures/Plates Upper ASA Classification ASA Score: ASA 3 Emergency Case?: No NPO Status NPO Status: NPO Clears >2 hours, Solids >8 hours Anesthesia Plan Resuscitation Status: Full Code Anesthesia Technique: General Anesthesia Airway Planned: Endotracheal Tube Monitors Used: Standard Monitors
[2024-03-01] MEDS: ceFAZolin 2 GM/50 ML BAG IVPB (10:35)
[2024-03-01] MEDS: TRANEXAMIC ACID/SOD. CHL. 1,000 MG/100 ML BAG 600 MG IVPB (10:55)
[2024-03-01] MEDS: Bupivacaine 0.25% Pres-Free W/EPI 30 ML VIAL (11:00)
[2024-03-01] MEDS: EPINEPHrine 10 MG/10 ML ML (12:00)
--- NOTE | 2024-03-01 12:01 | DI.RAD_ITS ---
Exam(s) XR HIP RT IN OR EXAM: XR HIP RT IN OR CLINICAL HISTORY: Iliotibial band syndrome of right side. TECHNIQUE: 2D and realtime digital imaging was performed. COMPARISON: CR XR HIP RT AP LAT ONLY from 02/08/2024 FINDINGS: Please see procedure note for details. Fluoro time: 10.7seconds RADIATION DOSE DELIVERED: Ka,r=1.50 mGy
[2024-03-01] MEDS: fentaNYL 100 MCG/2 ML VIAL IVP ×3 (12:33→12:52)
--- NOTE | 2024-03-01 13:25 | W.ANESPOSTOP ---
Postoperative Evaluation Date, Time and Location Date Performed: 03/01/24 Time Performed: 13:25 Patient Location: PACU Vital Signs Most Recent Imported Vital Signs: Most Recent Vital Signs Temp Pulse Resp BP Pulse Ox 36.1 C L 52 L 16 128/76 99 03/01/24 13:17 03/01/24 13:17 03/01/24 13:17 03/01/24 13:17 03/01/24 13:17 Pain Score Most Recent Pain Score: Most Recent Pain Score Pain Level 5 03/01/24 13:17 Assessment Mental Status: Awake (Alert & Oriented to Patient Baseline) Airway and Respiratory Function: Patent airway with normal (patient baseline) respiratory exam Cardiovascular Function: Hemodynamically Stable Hydration Status: Adequately Hydrated Nausea & Vomiting: No Nausea or Vomiting Pain: Pain is tolerable per patient Peripheral Nerve Block: Patient did not receive a nerve block
== END 2024-03-01 15:44 | disposition home or self-care (01) ==
PROVIDERS: PCP Internal Medicine; Visit Provider Student in an Organized Health Care Education/Training Program
PROC: (CPT 29863; principal; 2024-03-01 10:00)
DX: M70.61 Trochanteric bursitis, right hip (principal); M76.31 Iliotibial band syndrome, right leg; S76.011A Strain of muscle, fascia and tendon of right hip, initial encounter; X58.XXXA Exposure to other specified factors, initial encounter
CPT/HCPCS: 27305; 27062; 27006; 73501; J0131; J0690; J1100; J1885; J2003; J2405; J2704; J3010

== ENCOUNTER → 2024-03-14 14:08 | Outpatient (BNVA) | payer MEDICARE, BC, SELFPAY | PROVIDERS: PCP Internal Medicine; Visit Provider Student in an Organized Health Care Education/Training Program | DX: M76.31 Iliotibial band syndrome, right leg (principal); S76.011A Strain of muscle, fascia and tendon of right hip, initial encounter; X58.XXXA Exposure to other specified factors, initial encounter | CPT/HCPCS: 99024 ==

== ENCOUNTER → 2024-04-25 13:25 | Outpatient (BNVA) | payer MEDICARE, BC, SELFPAY | PROVIDERS: PCP Internal Medicine; Visit Provider Student in an Organized Health Care Education/Training Program | DX: Z47.89 Encounter for other orthopedic aftercare (principal); M76.31 Iliotibial band syndrome, right leg | CPT/HCPCS: 99024 ==

== ENCOUNTER 2024-06-07 03:41 | Outpatient (CLI) | payer MEDICARE, BC, SELFPAY ==
--- NOTE | 2024-06-07 | DI.MRI_ITS ---
Exam(s) MR BRAIN WO/W EXAM: MR BRAIN WO/W CLINICAL HISTORY: Memory loss, R41.3 TECHNIQUE: Multiplanar multisequence MRI of the brain was performed. CONTRAST MATERIAL: IV Contrast: 14 mL of Dotarem contrast administered. COMPARISON: No exams were available for comparison FINDINGS: VENTRICLES AND EXTRA AXIAL SPACES: There is global age-appropriate cerebral atrophy present. HEMORRHAGE: None. CEREBRAL PARENCHYMA: No focus of restricted diffusion to suggest acute infarct. No space-occupying le ana identified. There are few scattered areas of hyperintense signal seen in the white matter on the FLAIR and T2 weighted images most consistent with chronic microvascular ischemic disease. MIDLINE SHIFT: None. BRAINSTEM/CEREBELLUM: Normal. CALVARIUM: Normal. ENHANCEMENT: No suspicious enhancement identified. VISUALIZED PARANASAL SINUSES/MASTOIDS: Clear. [place]: Normal flow void. PITUITARY GLAND: Unremarkable. OTHER FINDINGS: IMPRESSION: 1. Age-related cerebral atrophy and mild chronic microvascular ischemic disease. 2. No evidence of an acute infarct, intracranial mass or enhancing lesion. DATA REPOSITORY:
[2024-06-07] MEDS: Normal Saline Flush 10 ML SYR IVP (11:07)
[2024-06-07] MEDS: Gadoterate meglumine 20 ML SYRINGE 14 ML IVP (11:07)
== END 2024-06-07 04:01 ==
PROVIDERS: PCP Internal Medicine; Visit Provider Internal Medicine
DX: I67.82 Cerebral ischemia (principal)
CPT/HCPCS: 70553

== ENCOUNTER → 2024-07-03 12:56 | Outpatient (BNVA) | payer MEDICARE, BC, SELFPAY | PROVIDERS: PCP Internal Medicine; Visit Provider Student in an Organized Health Care Education/Training Program | DX: M70.62 Trochanteric bursitis, left hip (principal); M76.31 Iliotibial band syndrome, right leg; M76.32 Iliotibial band syndrome, left leg; M70.61 Trochanteric bursitis, right hip | CPT/HCPCS: 20610; 99214; J1010 ==

== ENCOUNTER → 2024-08-30 13:09 | Outpatient (BNVA) | payer MEDICARE, BC, SELFPAY | PROVIDERS: PCP Internal Medicine; Referring Provider Internal Medicine; Visit Provider Nurse Practitioner Adult Health | DX: R41.3 Other amnesia (principal) | CPT/HCPCS: 99215; G2212 ==

== ENCOUNTER 2024-10-17 11:16 | Outpatient (CLI) | payer MEDICARE, BC, SELFPAY ==
--- NOTE | 2024-10-17 10:30 | DI.RAD_ITS ---
Exam(s) XR HIP LT AP LAT ONLY EXAM: XR HIP LT AP LAT ONLY CLINICAL HISTORY: LEFT HIP PAIN. TECHNIQUE: 2D digital imaging was performed. Two views. COMPARISON: CR XR HIP RT AP LAT ONLY from 02/08/2024 FINDINGS: BONES: No acute fracture is present. No bony destructive lesion is seen. Hardware at the lumbosacra l junction. JOINTS: No dislocation present. The left hip joint space is maintained. There is minimal periarticu lar spurring. There are mild degenerative changes at the inferior left SI joint. SOFT TISSUE: Pelvic calcifications consistent with fibroids. IMPRESSION: Mild degenerative changes. DATA REPOSITORY: RADIATION DOSE DELIVERED:
== END 2024-10-17 11:17 | disposition home or self-care (01) ==
LOC: DIORS 11:16
PROVIDERS: PCP Internal Medicine; Referring Provider Internal Medicine; Visit Provider Student in an Organized Health Care Education/Training Program
DX: M70.62 Trochanteric bursitis, left hip (principal); M76.32 Iliotibial band syndrome, left leg
CPT/HCPCS: 20610; 99213; J1010; 73502

== ENCOUNTER → 2024-11-07 09:33 | Outpatient (BNVA) | payer MEDICARE, BC, SELFPAY | PROVIDERS: PCP Internal Medicine; Referring Provider Internal Medicine; Visit Provider Nurse Practitioner Adult Health | DX: R41.3 Other amnesia (principal); I10 Essential (primary) hypertension | CPT/HCPCS: 99215; 96125; 36415; 82607 ==

== ENCOUNTER 2024-11-07 11:14 | Outpatient (CLI) | payer MEDICARE, BC, SELFPAY ==
[2024-11-07 12:28] LABS: Vitamin B12 784 pg/mL (193-986)
== END 2024-11-07 11:15 | disposition home or self-care (01) ==
LOC: LBO 11:15
PROVIDERS: PCP Internal Medicine; Visit Provider Nurse Practitioner Adult Health
DX: R41.3 Other amnesia (principal)
CPT/HCPCS: 36415; 82607